=== PATIENT | female | born 1945 | race Caucasian/White ===

== ENCOUNTER 2018-11-25 13:02 | Inpatient (IN) ==
[2018-11-25] MEDS ORDERED: SODIUM BICARBONATE 8.4% IV PUSH ONE ×2 (13:09→14:13)
[2018-11-25] MEDS ORDERED: NS 500 ML IV ONE (13:13)
[2018-11-25] MEDS ORDERED: NS 1,000 ML IV ONE ×5 (13:13→20:14)
[2018-11-25] MEDS ORDERED: EPINEPHRINE SYRINGE IV ONE (13:14)
[2018-11-25] MEDS ORDERED: EPINEPHRINE 8 MG in D5W 250 ML IV SCH (13:15)
[2018-11-25 13:19] LABS: BLOOD TYPE ARTERIAL; SAMPLE BLOOD
[2018-11-25 13:20] LABS: BE -17.3 mmoll (-3.0-3.0); HCO3-(ACT) 11.5 mmoll (20.0-26.0); METHB 0.4 % (0.0-1.5); O2(CT) 13.6 mL/dL (15.0-23.0); O2HB 97.5 % (95.0-99.0); PCO2(98.6) 32 mmHg (35-45); PO2(98.6) 328 mmHg (60-100); SAO2 98.8 % (95.0-100.0); THB 9.3 g/dL (11.5-17.4)
[2018-11-25 13:34] LABS: pH(98.6) 7.13 (7.35-7.45)
[2018-11-25 13:35] LABS: ALLEN TEST YES; MODALITY AMBU BAG
--- NOTE | 2018-11-25 13:38 | EKG Report ---
Test Performed on : 11/25/2018 1:05:45 PM Test Reason : post arrest,seizure Blood Pressure : / mmHG Vent. Rate : 061 BPM Atrial Rate : 051 BPM P-R Int : 000 ms QRS Dur : 136 ms QT Int : 460 ms P-R-T Axes : 000 -50 044 degrees QTc Int : 463 ms Atrial fibrillation. with premature ventricular or aberrantly conducted complexes. Left axis deviation Nonspecific intraventricular block Inferior infarct , age undetermined Abnormal ECG When compared with ECG of 15-MAR-2012 10:03, Atrial fibrillation. has replaced Ectopic atrial rhythm. Questionable change in QRS duration Inferior infarct is now present Unconfirmed Result
[2018-11-25] MEDS ORDERED: VANCOMYCIN 1 GM/NS 1 GM/250 ML IVPB IV ONE (13:39)
[2018-11-25] MEDS ORDERED: ZOSYN 3.375 GM in NS 50 ML IV ONE (13:39)
--- NOTE | 2018-11-25 13:43 | Diag Imaging Result Doc PS360 ---
EXAM: CHEST-PORTABLE 11/25/2018 HISTORY: postarrest intubation TECHNIQUE: AP portable at 1323 COMMENT: There is an endotracheal tube with its tip at thoracic inlet. There are patchy ill-defined opacities bilaterally which may be indicative of pulmonary edema or pneumonia. This is worse than on 03/13/2012. IMPRESSION: Pulmonary edema versus pneumonia. Electronically signed by Javan Jackson 11/25/2018 1:41 PM
--- NOTE | 2018-11-25 13:49 | PROVIDER DOCUMENTATION ---
This chart was entered by Kady Mckeon Scribe, acting as scribe for Elio Russo MD. HPI-Cardiopulmonary Arrest - General Chief Complaint: Full Arrest Stated Complaint: FULL ARREST Time Seen by Provider: 11/25/18 13:09 Source: patient, family, EMS Unable to obtain history due to:: urgency Allergies/Adverse Reactions: Allergies Allergy/AdvReac Type Severity Reaction Status Date / Time No Known Allergies Allergy Unverified 11/25/18 13:32 Home Medications: Home Medication List Medication Instructions Recorded Confirmed Last Taken Type Aripiprazole [Abilify] 5 mg PO DAILY 03/13/12 11/25/18 10/16/13 07:00 History Gabapentin [Neurontin] 1,200 mg PO QAM 03/13/12 11/25/18 10/16/13 07:00 History Gabapentin [Neurontin] 600 mg PO QPM 03/13/12 11/25/18 10/16/13 20:00 History Metoprolol [Lopressor] 50 mg PO BID 03/13/12 11/25/18 10/16/13 07:00 History Topiramate 50 mg PO BID 03/13/12 11/25/18 10/16/13 07:00 History LISINOpril [Prinivil] 10 mg PO DAILY 10/16/13 11/25/18 10/16/13 07:00 History Metformin [Glucophage] 500 mg PO BID CC 10/16/13 11/25/18 10/16/13 07:00 History Levofloxacin 500 mg PO DAILY 11/25/18 11/25/18 Unknown History PRAVAstatin [Pravachol] 40 mg PO QHS 11/25/18 11/25/18 Unknown History - History of Present Illness-C/P Arrest Initial Comments: 73 yowf with history of seizure disorder and recent diarrheal illness who presents by ems after initial call was a seizure then into a full arrest. pt arrest was witnessed by daughter who started CPR. when fire/ems arrived on scene they intubated pt with a 7.5 and pt had ROSC. per ems pt was given 1mg epi x1 and a bag of fluid was given. pt is unresponsive when arrived in ed pre er BGL 262 and pt did have witnessed seizure by daughter prior arrest. per fire daughter was doing good compressions when they arrived on scene and took over life saving measures per ems when pt was loaded into the ambulance that is when ROSC happened and that was at 1253 Reason for Code Blue?: full arrest Witnessed arrest?: Yes (by daughter) Noted by:: family Bystander CPR?: Yes (daughter) CPR initiated before doctor arrival?: Yes Down-time before ACLS?: unknown Initial Findings: unresponsive, no respirations Treatment initiated prior to doctor arrival?: Initiated oxygen, Initiated intubated, Initiated CPR/thumper, Initiated IV fluids, Initiated epinephrine #mg (x1) Similar Symptoms Previously?: No Recently seen or treated by another doctor?: No - Pre-hospital Treatment EMS Initial Findings:: unresponsive, no respirations Pre-hospital Treatment: Initiated oxygen, Initiated intubated, Initiated CPR, Initiated IV fluids, Initiated epinephrine (x1) Review of Systems - Adult - REVIEW OF SYSTEMS - ADULT ROS:: per fire and ems Constitutional: reports: no symptoms reported Eyes: reports: no symptoms reported Ears, Nose, Mouth & Throat: reports: no symptoms reported Cardiovascular: denies: chest pain, palpitations Respiratory: reports: see HPI, shortness of breath. denies: cough Gastrointestinal: reports: see HPI, diarrhea (per family). denies: nausea, vomiting Genitourinary: reports: no symptoms reported Musculoskeletal: reports: no symptoms reported Integumentary: reports: no symptoms reported Neurological: reports: see HPI, seizure. denies: dizziness/vertigo Psychiatric: reports: no symptoms reported Endocrine: reports: no symptoms reported Hematologic/Lymphatic: reports: no symptoms reported Allergic/Immunologic: reports: no symptoms reported All Other Systems: Reviewed and Negative Past History - Adult - PAST MEDICAL HISTORY-ADULT Review of Records: reports: Old Records Reviewed, Nursing Assessment Review, Medications Reviewed, Social history reviewed & non-contributory. Major Childhood Illnesses: reports: denies history Cardiovascular: reports: HTN Respiratory: reports: denies history Gastrointestinal: reports: denies history Obstetrical/Gynecological: reports: denies history Genitourinary: reports: denies history Musculoskeletal: reports: denies history Neurological: reports: Seizures/Epilepsy Psychiatric: reports: denies history Endocrine/Immune: reports: Diabetes Diabetes Type: Type 2 Other Conditions: reports: other cancer (breast) - PRIOR SURGERIES/PROCEDURES Surgical/Procedure History: reports: cholecystectomy, BTL, breast - IMMUNIZATION STATUS Childhood Immunizations: See Nurse Assessment Flu Vaccine: See Nurse Assessment - FAMILY HISTORY Family History: reviewed, not pertinent - SOCIAL HISTORY Smoking: denies Substance Use: denies Living Situation: family Physical Exam-General - PHYSICAL EXAM-ADULT Initial Vital Signs Reviewed: Yes - CONSTITUTIONAL General Appearance: obese, other (unresponsive) - EYES Eyes: PERRL/EOMI (4mm but sluggish) - HEAD, EARS, NOSE, MOUTH & THROAT HENMT: moist mucous membranes, other (has vomit noted and suction as needed) - NECK Neck: normal inspection - RESPIRATORY Respiratory: respiratory distress, rales, other (intubated) - CARDIOVASCULAR Cardiovascular: normal peripheral pulses (64 BPM on exam), regular rate, rhythm - GASTROINTESTINAL (ABDOMEN) Abdominal Exam: distended - LYMPHATIC Lymphatic: no adenopathy - MUSCULOSKELETAL Extremity: pelvis stable, other (pt is unresponsive with no control of extremities) - SKIN Integumentary: warm/dry - PSYCHIATRIC Psych/Mental Status: other (unrespomnsive) Progress - PLAN OF CARE/RESULTS Progress/Plan/Lab Results: Orders Category Date Time Status Admit - [facility] Routine AdmDCTranf 11/25/18 15:18 Active Call Admitting on Arrival AT ADMISSION Care 11/25/18 15:22 Completed Cardiac Monitoring DIRECTED Care 11/25/18 13:26 Completed August Cath Insertion ORDERED Care 11/25/18 13:13 Completed Intake and Output-Strict ORDERED Care 11/25/18 13:13 Active Misc. NRSG Communication Order DIRECTED Care 11/25/18 14:11 Active Neurological Check Q1h Care 11/25/18 15:18 Hold Notify MD/PA/JOHANNA for exam NOW Care 11/25/18 13:13 Completed Repeat Vital Signs .Blood Pressure Care 11/25/18 13:13 Completed Repeat Vital Signs .Heart Rate Care 11/25/18 13:13 Completed Repeat Vital Signs .Oxygen Saturation Care 11/25/18 13:13 Active Repeat Vital Signs .Respiratory Rate Care 11/25/18 13:13 Active Repeat Vital Signs .Temp Care 11/25/18 13:13 Active Resuscitation Status Routine Care 11/25/18 15:18 Ordered Seizure Precautions ROUTINE Care 11/25/18 13:27 Active Vital Signs Order Q 4-HR ASSESS Care 11/25/18 15:18 Active NPO Diet 11/25/18 15:23 Active CHEST-PORTABLE [RAD] Stat Exams 11/25/18 13:09 Completed CHEST/ABD TUBE PLACEMENT [RAD] Stat Exams 11/25/18 14:54 Completed CHEST/ABD TUBE PLACEMENT [RAD] Stat Exams 11/25/18 17:[address] HEAD W/O CONTRAST [CT] Stat Exams 11/25/18 13:[address] THORAX/ABD/PELVIS W/O CON [CT] Stat Exams 11/25/18 13:49 Completed ABG [RESP] Routine Lab 11/25/18 13:04 Completed BLOOD CULTURE [BLDCUL] Stat Lab 11/25/18 14:50 Results CBC WITH ELECTRONIC DIFF [HEME] Stat Lab 11/25/18 13:17 Completed CK PROFILE [SP CHEM] Stat Lab 11/25/18 13:17 Completed CMP [COMPREHENSIVE METABOLIC PANEL] [CHEM] Stat Lab 11/25/18 13:17 Completed LACTATE, PLASMA [CHEM] Timed Lab 11/25/18 13:17 Completed MAGNESIUM [CHEM] Stat Lab 11/25/18 13:17 Completed TROPONIN T Stat Lab 11/25/18 13:17 Completed 0.9% Sodium Chloride Inj [Ns] 1,000 ml Med 11/25/18 13:41 Discontinued IV 999 mls/hr 0.9% Sodium Chloride Inj [Ns] 1,000 ml Med 11/25/18 15:59 Discontinued IV 999 mls/hr 0.9% Sodium Chloride Inj [Ns] 1,000 ml Med 11/25/18 16:19 Discontinued IV 999 mls/hr 0.9% Sodium Chloride Inj [Ns] 1,000 ml Med 11/25/18 13:13 Discontinued IV As Directed mls/hr 0.9% Sodium Chloride Inj [Ns] 500 ml Med 11/25/18 13:13 Discontinued IV 999 mls/hr 0.9% Sodium Chloride Inj [Ns] 80 ml Med 11/25/18 15:00 Discontinued Midazolam [Versed] 100 mg IV As Directed mls/hr Calcium Chloride Syringe Med 11/25/18 16:01 Discontinued 1 gm IV NOW ONE Dextrose 5%-Water Inj [D5w] 250 ml Med 11/25/18 13:15 Discontinued Epinephrine 8 mg IV As Directed mls/hr Dextrose 50% Syringe [D50w Syringe] Med 11/25/18 13:58 Discontinued 50 ml IV DIRECTED PRN PRN Epinephrine Syringe Med 11/25/18 13:14 Discontinued 1 mg IV NOW ONE Insulin Human Regular ([place] [Humulin R ([place])] Med 11/25/18 14:19 Discontinued 8 units .ROUTE .STK-MED ONE Insulin Human Regular [Humulin R] Med 11/25/18 13:59 Discontinued 8 unit IV NOW ONE Levetiracetam [Keppra] 1,000 mg Med 11/25/18 14:10 Discontinued 0.9% Sodium Chloride Inj [Ns] 100 ml IV NOW Lorazepam [Ativan] Med 11/25/18 14:10 Discontinued 2 mg IV NOW ONE Methylprednisolone Sod Succ [Solu-Medrol] Med 11/25/18 16:00 Discontinued 125 mg IV STAT ONE Ondansetron [Zofran] Med 11/25/18 14:11 Discontinued 4 mg IV NOW ONE Ondansetron [Zofran] Med 11/25/18 15:18 Discontinued 4 mg IV Q4H PRN PRN Piperacillin/Tazobactam [Zosyn] 3.375 gm Med 11/25/18 13:39 Discontinued 0.9% Sodium Chloride Inj [Ns] 50 ml IV NOW Sodium Bicarbonate 8.4% Med 11/25/18 13:09 Discontinued 50 meq IV PUSH NOW ONE Sodium Bicarbonate 8.4% Med 11/25/18 14:13 Discontinued 50 meq IV PUSH NOW ONE Vancomycin 1 gm/Ns Med 11/25/18 13:39 Discontinued 1 gm in 250 ml IV NOW O2 Per Protocol Routine Oth 11/25/18 13:05 Completed Telemetry [OM.EQ] Routine Oth 11/25/18 15:18 Active Ventilator Order Stat Oth 11/25/18 13:15 Active EKG [EKG] Stat Ther 11/25/18 13:10 Draft Transfer/Admit Order [TRANSFER] Routine Transfer 11/25/18 15:25 Completed pt arrived in ed at 1301 via first response intubated, unresponsive. pt has a pulse of 64 and BP 95/39. pt was given Bicarb @ 1307. pt does have vomit and is being suctioned as needed. pupils are sluggish reactive at 4mm. pt current BP 130/71 1325. kim is at the er and dr russo will speak with them shortly Result Diagrams: 11/26/18 14:59 11/26/18 14:59 - REASSESSMENT Reassessment #1 Time Reassessed: 13:40 (dr russo at bedside working with nurses and pt) Status: improving Reassessment Comment: bp improved after starting IV epi and IV fluid bolus Reassessment #2 Time Reassessed: 13:43 (dr russo is speaking with family at this time) Status: unchanged Reassessment #3 Time Reassessed: 14:14 (dr russo at [facility] ) Reassessment #4 Time Reassessed: 14:45 (dr russo with family at bedside) Status: unchanged Reassessment Comment: updated family of patients condition,plan to transfer to [facility] Reassessment #5 Time Reassessed: 15:04 (dr russo at bedside) Status: unchanged - EKG 1 Time of EKG reading by physician:: 13:05 EKG Read and Signed by:: Elio Russo EKG Interpretation (*Must complete 3 of following elements*): Abnormal Rate: 61 Rhythm: afib w/premyure ventricular or aberrantly conducted complexes [place]: left (deviation) QRS: other (nonspecific intraventricular block) ME Interval: normal ST Wave: normal Comments: inferior infarct, age undetermined - XRAY 1 XRAY Study: Chest Impression: See EMR Report (EXAM: CHEST-PORTABLE 11/25/2018 HISTORY: postarrest intubation TECHNIQUE: AP portable at 1323 COMMENT: There is an endotracheal tube with its tip at thoracic inlet. There are patchy ill-defined opacities bilaterally which may be indicative of pulmonary edema or pneumonia. This is worse than on 03/13/2012. IMPRESSION: Pulmonary edema versus pneumonia. Electronically signed by Javan Jackson 11/25/2018 1:41 PM 11/25/18 1341 Interpreting Physician: Javan Jackson MD Dictated Date/Time: 11/25/18 1341 cc: Elio Russo MD; Luis Abdul MD) 2 XRAY Study: other Impression: See EMR Report (EXAM: CHEST/ABD TUBE PLACEMENT - 11/25/2018 HISTORY: NG tube placement TECHNIQUE: Portable exam for nasogastric tube placement COMPARISON: None. FINDINGS: The tip of the nasogastric tube is at the expected location of the mid stomach. IMPRESSION: Nasogastric tube extending to mid stomach. Electronically signed by Endy Thakkar 11/25/2018 3:29 PM 11/25/18 1529 Interpreting Physician: Endy Thakkar MD Dictated Date/Time: 11/25/18 1528 cc: Elio Russo MD; Luis Abdul MD) - CT/MRI 1 CT Study: Head Impression: See EMR Report (EXAM: CT HEAD W/O CONTRAST - 11/25/2018 HISTORY: altered mentation, seizure TECHNIQUE: CT head without contrast COMPARISON: 06/03/2018 FINDINGS: There are mild artifacts from motion. There is an old lacunar infarct versus dilated perivascular space near the inferior basal ganglia on the right which is stable. There is an old tiny infarct at the right cerebellum which is stable. There is no indication of recent infarct, although acute infarcts may not be immediately visible. There are atherosclerotic calcifications noted at the base the brain. There is no evidence of intracranial hemorrhage, mass effect, midline shift, or hydrocephalus. There is no evidence of skull fracture. There is paranasal sinus disease noted which is most prominent on the right. The posterior nasal cavities are noted to be opacified. IMPRESSION: No visible acute intracranial abnormality. No hemorrh age or mass effect. There is paranasal sinus disease noted. The posterior nasal cavities are noted to be opacified. This exam was performed using automated exposure control, adjustment of mA or kV according to patient size, and/or use of iterative reconstruction technique. Electronically signed by Endy Thakkar 11/25/2018 2:12 PM 11/25/18 1412 Interpreting Physician: Endy Thakkar MD Dictated Date/Time: 11/25/18 1407 cc: Elio Russo MD; Luis Abdul MD) 2 CT Study: Abdomen, Pelvis, other Impression: See EMR Report (EXAM: CT THORAX/ABD/PELVIS W/O CON - 11/25/2018 HISTORY: cardiac arrest TECHNIQUE: CT thorax abdomen pelvis with intravenous contrast. No contrast administered per request the referring provider. COMPARISON: CT abdomen/pelvis with contrast of 03/13/2012 FINDINGS: CT thorax: There is an endotracheal tube with its tip slightly above the alvaro. There are fractures of the anterior lateral left second, third, fourth, and fifth ribs. There are fractures of the anterior right first lateral right second, third, fourth, fifth, and six ribs. There is cardiomegaly. There are relatively diffuse but somewhat patchy bilateral infiltrates. There is more dense consolidation at the superior right lower lobe. There is a small right pleural effusion. There is no pneumothorax identified. There is some infiltration at the superior mediastinum and supraclavicular region on the right. The possibility that this relates to hemorrhage cannot be excluded. Assessment for specific vascular in jury is difficult without intravenous contrast. CT abdomen/pelvis: There is some limitation of detail due to the lack of administered contrast. There are no substantial abnormalities of the liver, spleen, adrenal glands, or pancreas identified. The gallbladder surgically absent. There are no substantial abnormalities of the kidneys identified. There is no hydronephrosis. The stomach is distended with fluid and air. There is relatively diffuse distention of small bowel, primarily with fluid. This could relate to distal small bowel obstruction or possibly to ileus, although the colon is not substantially distended. There is a August catheter in the urinary bladder. There is apparent gas bubbles in the urinary bladder which presumably relates to the presence of August catheter. There is no discrete abscess identified. There is no free air identified. There is no substantial free fluid identified. There are old fracture deformities of posterior lower ribs on the right. There is an ununited fracture of the posterior right 11th rib of nonspecific age. IMPRESSION: CT thorax: Fractures of the anterior lateral left second through fifth ribs. Fracture of anterior lateral right first rib. Fractures of lateral right second through sixth ribs. Cardiomegaly. Fairly extensive ill-defined bilateral infiltrates. More dense consolidation at superior right lower lobe. Small right pleural effusion. No evidence of pneumothorax. Ill-defined infiltration or right supraclavicular region and right superior mediastinum. This may relate to hemorrhage. CT abdomen/pelvis: Distended stomach. Diffuse distention of small bowel. This may relate to distal small bowel obstruction or possibly to ileus. No discrete evidence of injury to the abdomen or pelvis. This report was discussed with Dr. Russo on 11/25/2018 at 2:39 PM and was readback. This exam was performed using automated exposure control, adjustment of mA or kV according to patient size, and/or use of iterative reconstruction technique. Electronically signed by Endy Thakkar 11/25/2018 2:40 PM 11/25/18 1440 Interpreting Physician: Endy Thakkar MD Dictated Date/Time: 11/25/18 1420 cc: Elio Russo MD; Luis Abdul MD) - CONSULTS/PCP/HOSPITALIST Notification #1 *Consult/PCP/Hospitalist*: hospitalist dr smart Time Discussed: 14:33 (pt will be tranfered to [facility]) Consult Disposition: Admit #2 Consult: dr abdul Time Discussed: 15:14 Reason/Comments: phone consult,request admit to [facility] ICU to his service Consult Disposition: Admit Procedures - GASTRIC LAVAGE Nasogastric Lavage: Particulate Matter Procedure Comment: stable Departure - Departure Date of Disposition Decision: 11/25/18 Time of Disposition Decision: 17:55 DIAGNOSIS: RAE (acute kidney injury), Hyperkalemia, Elevated troponin, Seizure disorder, Bilateral pulmonary infiltrates on chest x-ray, Multiple fractures of ribs, bilateral, initial encounter for closed fracture Disposition: ADMITTED INPATIENT 09 Certified Medical Emergency: Emergent Condition: Critical - Critical Care Note This patient required my direct & personal management of CC.: Yes Total Time (mins): 38 Critical Care Statement: This patient required my direct personal management to treat or rule out processes, the absence of which, could potentiallly result in sudden, clinically significant life or limb threatening deterioration. Attestation - Physician/ SABINA Attestation Patient care was provided by Advanced Practice Provider:: No The physician spent face to face time with patient:: Yes Advanced Practice Provider documentation review:: Supervising physician onsite and consulted in the evaluation and care of this patient. The physician did have a face to face encounter with the patient. This chart was documented by the indicated scribe, (Kady Mckeon Scribe) and accurately reflects the services I performed and decisions made by me, Elio Russo MD, as attested by the provider's signature.
[2018-11-25 13:52] LABS: MAGNESIUM 2.1 mg/dL (1.5-2.7)
[2018-11-25 13:55] LABS: BASO# 0.01 X1000 (0.0-0.2); BASO% 0.1 % (0.0-0.8); EOS# 0.03 X1000 (0.0-0.7); EOS% 0.4 % (0.0-10.0); HEMATOCRIT 27.4 % (37.0-47.0); HEMOGLOBIN 9.2 g/dL (12.0-16.0); IMM GRAN# 0.04 X1000 (0.0-0.04); IMM GRAN% 0.5 % (0.0-0.5); LYMPH# 4.68 X1000 (1.2-3.4); LYMPH% 61.3 % (20.5-51.1); MCH 31.2 PG (27-31); MCHC 33.6 g/dL (33-37); MCV 92.9 FL (81-99); MONO# 0.31 X1000 (0.11-0.59); MONO% 4.1 % (1.7-9.3); MPV 10.8 FL (7.4-10.4); NEUT# 2.57 X1000 (1.4-6.5); NEUT% 33.6 % (42.2-75.2); PLT 231 X1000 (130-400); RBC 2.95 XMIL (4.2-5.4); RDW 12.4 % (11.5-14.5); WBC 7.64 X1000 (4.8-10.8)
[2018-11-25 13:57] LABS: ALBUMIN 3.3 g/dL (3.5-5.0); CALCIUM 7.1 mg/dL (8.8-10.2); CREATININE 3.9 mg/dL (0.5-0.9); TOTAL BILIRUBIN 0.6 mg/dL (0.20-1.00); TOTAL PROTEIN 5.8 g/dL (6.3-8.3)
[2018-11-25] MEDS ORDERED: D50W SYRINGE IV PRN (13:58)
[2018-11-25] MEDS ORDERED: HUMULIN R IV ONE (13:59)
[2018-11-25 14:00] LABS: POTASSIUM 5.9 mmol/L (3.5-5.1)
[2018-11-25] MEDS ORDERED: KEPPRA 1,000 MG in NS 100 ML IV ONE (14:10)
[2018-11-25] MEDS ORDERED: ATIVAN IV ONE (14:10)
[2018-11-25] MEDS ORDERED: ZOFRAN IV ONE (14:11)
--- NOTE | 2018-11-25 14:14 | Diag Imaging Result Doc PS360 ---
EXAM: CT HEAD W/O CONTRAST - 11/25/2018 HISTORY: altered mentation, seizure TECHNIQUE: CT head without contrast COMPARISON: 06/03/2018 FINDINGS: There are mild artifacts from motion. There is an old lacunar infarct versus dilated perivascular space near the inferior basal ganglia on the right which is stable. There is an old tiny infarct at the right cerebellum which is stable. There is no indication of recent infarct, although acute infarcts may not be immediately visible. There are atherosclerotic calcifications noted at the base the brain. There is no evidence of intracranial hemorrhage, mass effect, midline shift, or hydrocephalus. There is no evidence of skull fracture. There is paranasal sinus disease noted which is most prominent on the right. The posterior nasal cavities are noted to be opacified. IMPRESSION: No visible acute intracranial abnormality. No hemorrhage or mass effect. There is paranasal sinus disease noted. The posterior nasal cavities are noted to be opacified. This exam was performed using automated exposure control, adjustment of mA or kV according to patient size, and/or use of iterative reconstruction technique. Electronically signed by Endy Thakkar 11/25/2018 2:12 PM
[2018-11-25 14:15] LABS: CK INDEX 2.6 (0.0-2.5); CK-MB 6.49 ng/mL (0.0-5.0)
[2018-11-25] MEDS ORDERED: HUMULIN R (PARKWAY) ONE (14:19)
--- NOTE | 2018-11-25 14:43 | Diag Imaging Result Doc PS360 ---
EXAM: CT THORAX/ABD/PELVIS W/O CON - 11/25/2018 HISTORY: cardiac arrest TECHNIQUE: CT thorax abdomen pelvis with intravenous contrast. No contrast administered per request the referring provider. COMPARISON: CT abdomen/pelvis with contrast of 03/13/2012 FINDINGS: CT thorax: There is an endotracheal tube with its tip slightly above the alvaro. There are fractures of the anterior lateral left second, third, fourth, and fifth ribs. There are fractures of the anterior right first lateral right second, third, fourth, fifth, and six ribs. There is cardiomegaly. There are relatively diffuse but somewhat patchy bilateral infiltrates. There is more dense consolidation at the superior right lower lobe. There is a small right pleural effusion. There is no pneumothorax identified. There is some infiltration at the superior mediastinum and supraclavicular region on the right. The possibility that this relates to hemorrhage cannot be excluded. Assessment for specific vascular injury is difficult without intravenous contrast. CT abdomen/pelvis: There is some limitation of detail due to the lack of administered contrast. There are no substantial abnormalities of the liver, spleen, adrenal glands, or pancreas identified. The gallbladder surgically absent. There are no substantial abnormalities of the kidneys identified. There is no hydronephrosis. The stomach is distended with fluid and air. There is relatively diffuse distention of small bowel, primarily with fluid. This could relate to distal small bowel obstruction or possibly to ileus, although the colon is not substantially distended. There is a August catheter in the urinary bladder. There is apparent gas bubbles in the urinary bladder which presumably relates to the presence of August catheter. There is no discrete abscess identified. There is no free air identified. There is no substantial free fluid identified. There are old fracture deformities of posterior lower ribs on the right. There is an ununited fracture of the posterior right 11th rib of nonspecific age. IMPRESSION: CT thorax: Fractures of the anterior lateral left second through fifth ribs. Fracture of anterior lateral right first rib. Fractures of lateral right second through sixth ribs. Cardiomegaly. Fairly extensive ill-defined bilateral infiltrates. More dense consolidation at superior right lower lobe. Small right pleural effusion. No evidence of pneumothorax. Ill-defined infiltration or right supraclavicular region and right superior mediastinum. This may relate to hemorrhage. CT abdomen/pelvis: Distended stomach. Diffuse distention of small bowel. This may relate to distal small bowel obstruction or possibly to ileus. No discrete evidence of injury to the abdomen or pelvis. This report was discussed with Dr. Russo on 11/25/2018 at 2:39 PM and was readback. This exam was performed using automated exposure control, adjustment of mA or kV according to patient size, and/or use of iterative reconstruction technique. Electronically signed by Endy Thakkar 11/25/2018 2:40 PM
[2018-11-25] MEDS ORDERED: VERSED 100 MG in NS 80 ML IV SCH (15:00)
[2018-11-25] MEDS ORDERED: ZOFRAN IV PRN (15:18)
--- NOTE | 2018-11-25 15:31 | Diag Imaging Result Doc PS360 ---
EXAM: CHEST/ABD TUBE PLACEMENT - 11/25/2018 HISTORY: NG tube placement TECHNIQUE: Portable exam for nasogastric tube placement COMPARISON: None. FINDINGS: The tip of the nasogastric tube is at the expected location of the mid stomach. IMPRESSION: Nasogastric tube extending to mid stomach. Electronically signed by Endy Thakkar 11/25/2018 3:29 PM
[2018-11-25] MEDS ORDERED: SOLU-MEDROL IV ONE (16:00)
[2018-11-25] MEDS ORDERED: CALCIUM CHLORIDE SYRINGE IV ONE (16:01)
--- NOTE | 2018-11-25 17:44 | Diag Imaging Result Doc PS360 ---
EXAM: CHEST/ABD TUBE PLACEMENT - 11/25/2018 HISTORY: NG tube re-insertion TECHNIQUE: Portable exam for nasogastric tube placement COMPARISON: Prior exam 11/25/2018 FINDINGS: The tip of the nasogastric tube now projects at the expected location of the proximal stomach near the gastroesophageal junction. The distal side-port tube is at the expected location of the distal esophagus. IMPRESSION: Tip of nasogastric tube at proximal stomach near gastroesophageal junction. Electronically signed by Endy Thakkar 11/25/2018 5:42 PM
[2018-11-25] MEDS ORDERED: TYLENOL PR PRN (18:25)
[2018-11-25] MEDS ORDERED: NS 500 ML IV PRN (18:25)
[2018-11-25] MEDS ORDERED: MAGNESIUM SULFATE 2 GM in STERILE WATER INJ. 50 ML IV PRN (18:30)
[2018-11-25] MEDS ORDERED: POTASSIUM CHLORIDE 40 MEQ in NS 250 ML IV PRN (18:30)
[2018-11-25] MEDS ORDERED: SODIUM PHOSPHATE 20 MMOL in NS 250 ML IV PRN (18:30)
[2018-11-25] MEDS ORDERED: POTASSIUM CHLORIDE 60 MEQ in NS 500 ML IV PRN (18:30)
[2018-11-25] MEDS ORDERED: SODIUM PHOSPHATE 10 MMOL in NS 250 ML IV PRN (18:30)
[2018-11-25] MEDS ORDERED: FENTANYL IV ONE (18:30)
[2018-11-25 18:46] LABS: ALLEN TEST NO; BE -24.6 mmoll (-3.0-3.0); BLOOD TYPE ARTERIAL; HCO3-(ACT) 5.7 mmoll (20.0-26.0); METHB 0.2 % (0.0-1.5); O2(CT) 13.4 mL/dL (15.0-23.0); O2HB 95.2 % (95.0-99.0); PCO2(98.6) 45 mmHg (35-45); PO2(98.6) 90 mmHg (60-100); SAMPLE BLOOD; SRATE 20 BPM; THB 9.9 g/dL (11.5-17.4); TVOL 450 mL
[2018-11-25 18:49] LABS: MODALITY VENTILATOR
[2018-11-25] MEDS ORDERED: NITROGLYCERIN 50 MG/D5W 50 MG/250 ML IV.SOLN IV SCH (19:00)
[2018-11-25] MEDS ORDERED: NORCURON IV ONE (19:00)
[2018-11-25 19:05] LABS: pH(98.6) 6.86 (7.35-7.45)
[2018-11-25] MEDS ORDERED: NS 2,000 ML ONE (19:06)
--- NOTE | 2018-11-25 19:13 | Diag Imaging Result Doc PS360 ---
EXAM: CHEST/ABD TUBE PLACEMENT - 11/25/2018 HISTORY: NGT placement/ therapeutic hypothermia TECHNIQUE: Portable exam for nasogastric tube placement COMPARISON: Most recent exam of 11/25/2018 FINDINGS: The tip of nasogastric tube remains at the expected location of the proximal stomach near the gastroesophageal junction. IMPRESSION: Tip of nasogastric tube in proximal stomach near gastroesophageal junction. Electronically signed by Endy Thakkar 11/25/2018 7:11 PM
[2018-11-25] MEDS ORDERED: EPINEPHRINE SYRINGE ONE (19:15)
[2018-11-25] MEDS ORDERED: SODIUM BICARBONATE 8.4% ONE (19:15)
[2018-11-25] MEDS ORDERED: NORCURON ONE (19:19)
[2018-11-25] MEDS ORDERED: STERILE WATER INJ. ONE (19:20)
[2018-11-25] MEDS ORDERED: VANCOMYCIN IV PER PHARMACY MISC SCH (19:45)
--- NOTE | 2018-11-25 20:06 | HISTORY AND PHYSICAL ---
HISTORY OF PRESENT ILLNESS: Ms. Rainey is a 73-year-old white female. She came to [facility] after she had 1 seizure episode. After the first episode, she became awake and alert, and she was getting oriented but then she had another seizure episode, and after that she had a cardiac arrest. After the cardiac arrest, we tried to resuscitate her with CPR. She had several ribs fractures at that time, and they tried to intubate her and put her on a ventilator. After that, during the procedure, she continued to have some partial seizures. She has a known case of seizure disorder and has been on gabapentin. Other details are not available, as the family is not here yet. She is a patient of Dr. Abdul, who initially saw her at [facility]. The patient was given IV fentanyl once as well as Keppra, and she was given Nimbex 80 mg IV as well as lorazepam IV at [facility], [place]. Other details of personal, past, and family history are not available at present. According to her physician, for about 7 days she had some GI side disorder with abdominal distention and possible small bowel ileus, and she went into some acute renal failure, as her creatinine went up to 3. The patient then was transferred after she was stabilized. She was transferred to [facility] in the ICU, and she is to be placed on a hypothermia protocol. REVIEW OF SYSTEMS: Not available. PHYSICAL EXAMINATION: GENERAL: The patient is stuporous, having some partial seizures affecting the face and having some twitches of the lower extremity. VITAL SIGNS: She is on a hypothermia blanket at present. Her temperature was down to 92.3. Pulse rate 66 per minute, respiratory rate 31, blood pressure down to 134/88. HEENT: Head normocephalic. Pupils are dilated but slightly reactive. NECK: Supple. She is intubated. CHEST/LUNGS: Reveal bilateral basal congestion. PMI in the normal position. CARDIOVASCULAR: Heart sounds normal. She has bilateral rales. ABDOMEN: Somewhat distended. She has an NG tube placed, and the tip of the tube is in the stomach as per the x-ray. No guarding, rigidity, free fluid, masses, or organomegaly. Bowel sounds not audible at the present time. EXTREMITIES: There is minimal leg edema. NEUROLOGICAL: The patient is stuporous. Detailed neurological examination cannot be done at this time. The patient is on a vent. MEDICATIONS: She had a central line put in, and we will continue the IV antibiotics, namely Zosyn and vancomycin. IMPRESSION: Seizure disorder and post-seizure cardiac arrest. The patient is on the ventilator now and probably had aspiration pneumonia, and now is to be placed on a hypothermia protocol. We have consulted Dr. Spence as well as the ladies' hat trimmer. cc: MD Luis Barrios MD
--- NOTE | 2018-11-25 20:11 | Diag Imaging Result Doc PS360 ---
EXAM: CHEST-PORTABLE - 11/25/2018 HISTORY: CVL placement TECHNIQUE: Portable chest COMPARISON: Prior exam of 11/25/2018 FINDINGS: There is been interval insertion of a left subclavian central venous catheter. The tip of the catheter is at the expected location of the junction of the left innominate vein and superior vena cava. There is no evidence of pneumothorax. There is an endotracheal tube is tip approximately 4.5 cm above the alvaro. There is a nasogastric tube is tip at the proximal stomach. There are bilateral perihilar infiltrates which appear to have increased. There is a small right pleural effusion. There is no pneumothorax identified. Heart size appears within normal limits. IMPRESSION: Tip of central venous catheter at junction of left innominate vein and superior vena cava. No evidence of pneumothorax. Some increase in perihilar infiltrates. Electronically signed by Endy Thakkar 11/25/2018 8:09 PM
[2018-11-25] MEDS ORDERED: NS 1,000 ML ONE (20:14)
[2018-11-25] MEDS: NS 500 ML IV SCH (20:18)
[2018-11-25 20:20] LABS: ALLEN TEST YES; BE -22.9 mmoll (-3.0-3.0); BLOOD TYPE ARTERIAL; METHB 0.6 % (0.0-1.5); O2(CT) 12.8 mL/dL (15.0-23.0); PCO2(98.6) 28 mmHg (35-45); PO2(98.6) 76 mmHg (60-100); SAMPLE BLOOD; SAO2 94.9 % (95.0-100.0); SRATE 25 BPM; THB 9.6 g/dL (11.5-17.4); TVOL 600 mL
[2018-11-25 20:21] LABS: MODALITY VENTILATOR
--- NOTE | 2018-11-25 20:22 | OPERATIVE NOTE ---
PROCEDURE DATE: 11/25/2018 PROCEDURE PERFORMED: Left subclavian central line placement. CLINICAL INDICATIONS: A 73-year-old, status post cardiopulmonary arrest, in need of central venous access. PROCEDURE: When I came into the ICU, Dr. Gee was at the bedside attempting a left subclavian line placement. Initial attempts had been unsuccessful with the line going cephalad. Dr. Gee had a patient in the operating room which needed his attention. He exited the sterile site and allowed me to perform the procedure. I scrubbed and gowned in the usual fashion and came to the bedside to assist in placement. The patient received a dose of paralytic. When the paralytic was active and the patient had relaxed, the left subclavian vein was entered on the second pass of the introducer needle. Wire was advanced through the needle without difficulty. Site was dilated with the plastic dilator. Triple lumen catheter was advanced over the wire and sutured into position. There was good blood return from all ports. A surgical dressing was placed by this practitioner. Postprocedure chest x-ray revealed no evidence of pneumothorax and the line was in good position. cc: MD Luis Tucker MD
[2018-11-25] MEDS: LACRI-LUBE OPH OINT BOTH EYES SCH (20:26)
[2018-11-25] MEDS: FENTANYL 1,000 MICROGM in NS 80 ML IV SCH (20:28)
[2018-11-25] MEDS: NIMBEX 80 MG in NS 160 ML IV SCH (20:34)
[2018-11-25 20:40] LABS: INR 1.53; PROTIME 19.6 Seconds (11.0-16.0)
[2018-11-25] MEDS: ATIVAN IV SCH ×2 (20:43→22:36)
[2018-11-25] MEDS: PEPCID IV SCH (20:43)
[2018-11-25] MEDS: SODIUM BICARBONATE 8.4% IV PUSH SCH ×2 (20:44→22:37)
[2018-11-25] MEDS: SODIUM CHLORIDE 0.9% INJ SCH (20:53)
[2018-11-25 20:57] LABS: AMYLASE 47 U/L (20-200); LIPASE 56 U/L (13-60)
[2018-11-25 21:00] LABS: ALB/GLOB RATIO 1.6; ALBUMIN 3.5 g/dL (3.5-5.0); CREATININE 3.8 mg/dL (0.5-0.9); POTASSIUM 5.8 mmol/L (3.5-5.1); TOTAL BILIRUBIN 0.96 mg/dL (0.20-1.00); TOTAL PROTEIN 5.7 g/dL (6.3-8.3)
[2018-11-25] MEDS: KEPPRA 750 MG in NS 100 ML IV SCH (21:07)
[2018-11-25] MEDS: SOLU-CORTEF IV SCH (21:08)
--- NOTE | 2018-11-25 21:15 | PULMONOLOGY CONSULTATION ---
DATE: 11/25/2018 REQUESTING PHYSICIAN: Luis Abdul MD. REASON FOR CONSULTATION: Respiratory failure, status post cardiopulmonary arrest. HISTORY OF PRESENT ILLNESS: Ms. Rainey is a 73-year-old white female with history of seizure disorder, who recently had a diarrheal illness. The patient had a seizure with return of mentation, followed by a 2nd seizure, and went into a cardiac arrest. The patient's daughter performed bystander CPR. EMS arrived, and the patient regained spontaneous circulation. She was unresponsive upon arrival to the emergency room. Initial arterial blood gas revealed significant acidosis with a lactate of 8.1. She has received volume resuscitation. She continues to be hypotensive. A central line was being placed by Dr. Gee upon my arrival and was completed by this practitioner (see separate dictation). PAST MEDICAL HISTORY/PROBLEM LIST: 1. Seizure disorder. 2. Recent diarrheal illness as per above. 3. Remote history of breast cancer without known recurrence. 4. Status post cholecystectomy. 5. Diabetes mellitus. 6. Hypertension. SOCIAL HISTORY: No tobacco or alcohol use listed. FAMILY HISTORY: Noncontributory. REVIEW OF SYSTEMS: Cannot be obtained. PHYSICAL EXAMINATION: General: A well-nourished white female who is unresponsive and on mechanical ventilation. She is currently on an epinephrine drip. Vital signs: Blood pressure 103/62, heart rate 73, respiratory rate 25, oxygen saturation 97%. HEENT: Pupils are midpoint and nonreactive. Oropharynx is dry. Neck: Supple. Chest: Some crepitus noted with auscultation although no subcutaneous air identified. Cardiac: Increased rate. Regular rhythm. Abdomen: Soft, with mild increased tympany. Extremities: Cool to the touch. LABORATORY DATA AND IMAGING STUDIES: Chest x-ray reveals bilateral pulmonary infiltrates. White blood count 7.6, hemoglobin 9.2, platelet count 231,000. Most recent arterial blood gas reveals a pH of 6.86, pCO2 of 45, pO2 of 90, lactate 8.3. Chemistry: Sodium 121, potassium 5.9, chloride 87, bicarbonate 13, BUN 42, creatinine 3.9, AST 1888, ALT 2743, alkaline phosphatase 261. CT scan of the chest, abdomen, and pelvis is reviewed. Chest exam reveals fractures of the left 2nd, 3rd, 4th, and 5th ribs and the right 2nd, 3rd, 4th, 5th, and 6th ribs. There are diffuse bilateral infiltrates with small right-sided effusion, possible hemorrhage at the right supraclavicular region. The abdomen reveals diffuse distention of the stomach and small bowel, possibly related to obstruction or ileus. IMPRESSION: A 73-year-old with seizure disorder, status post cardiopulmonary arrest. She has regained return of spontaneous circulation but had an episode of emesis and now has acute hypoxemic respiratory failure, acute hypercapnic respiratory failure, septic shock, aspiration pneumonia, seizure disorder with seizures, acute renal failure, acute liver injury, mediastinal injury, possible bowel ileus or obstruction, with ongoing severe metabolic acidosis. The exact time between cardiac arrest and return of spontaneous circulation is unknown. RECOMMENDATIONS: 1. Continue hypothermia protocol. 2. Central line placement (see separate report). 3. CVP monitoring. 4. Glucose control. 5. Continue broad-spectrum antibiotics. 6. Vasopressors as needed for hypotension. 7. Fluid management per CVP readings. 8. Anticipate poor prognosis given her age, diabetes mellitus, and severe multiorgan dysfunction this evening. cc: MD Luis Tucker MD
--- NOTE | 2018-11-25 21:18 | PROGRESS NOTE ---
DATE: 11/25/2018 SUBJECTIVE: Ms. Rainey is a 73-year-old white female who had a couple of syncopal episodes at home today. One was stiffening of her body, followed by arousal and attempt to take some fluids. She apparently had some vomiting and aspirated. She had another episode that sounds like a cardiac arrest, and ambulance was called. She was brought to [facility]. CPR was done and heart rate responded. She was placed on a ventilator and was noted to have some seizure activity. There is history of seizures, and her initial episodes sounded like a seizure. Through the process, it was unknown what amount of time she may have been hypoxic. DIAGNOSTIC DATA: Initial CT scan of her head was normal. CT of her abdomen and chest revealed bilateral lung infiltrates and ileus. She also was noted to have acute renal failure with elevated BUN and creatinine 42 and 3.9 respectively. Potassium was elevated at 5.9. She was given insulin and glucose. AST was elevated at 1888, and ALT was 2743. Alkaline phosphatase was 261. CPK was 251, and CK index was 2.6. MB was 6.5. Troponin T was 0.22. Plasma lactate was 7.2. White blood count was 7600 and hematocrit 27.4. PLAN: Supportive care and consultation with Dr. Spence, Pulmonology; Cardiology, Dr. Barrios; and Neurology, Dr. Ruiz. Discussion was made with family regarding her guarded prognosis. Supportive care will be done at this time, and lab rechecked tomorrow morning. cc: Luis Abdul MD
[2018-11-25 21:20] LABS: PHOSPHORUS 7.9 mg/dL (2.7-4.5)
[2018-11-25 21:30] LABS: BASO# 0.01 X1000 (0.0-0.2); BASO% 0.1 % (0.0-0.8); EOS# 0.07 X1000 (0.0-0.7); EOS% 0.7 % (0.0-10.0); HEMATOCRIT 31.6 % (37.0-47.0); HEMOGLOBIN 10.3 g/dL (12.0-16.0); IMM GRAN# 0.03 X1000 (0.0-0.04); IMM GRAN% 0.3 % (0.0-0.5); LYMPH% 18.1 % (20.5-51.1); MCH 32.1 PG (27-31); MCHC 32.6 g/dL (33-37); MCV 98.4 FL (81-99); MONO# 0.42 X1000 (0.11-0.59); MPV 11.5 FL (7.4-10.4); NEUT# 8.05 X1000 (1.4-6.5); NEUT% 76.8 % (42.2-75.2); PLT 307 X1000 (130-400); RBC 3.21 XMIL (4.2-5.4); RDW 12.9 % (11.5-14.5); WBC 10.48 X1000 (4.8-10.8)
[2018-11-25 21:31] LABS: CK INDEX 2.1 (0.0-2.5); CK-MB 18.08 ng/mL (0.0-5.0)
[2018-11-25] MEDS: NS 1,000 ML IV SCH (21:33)
[2018-11-25] MEDS ORDERED: VANCOMYCIN 1,450 MG in NS 250 ML IV ONE (22:00)
[2018-11-25] MEDS: HUMULIN R 100 UNIT in NS 100 ML IV SCH (22:43)
[2018-11-25] MEDS ORDERED: ATROPINE SYRINGE IV ONE (22:47)
[2018-11-26] MEDS: ZOSYN 3.375 GM in NS 50 ML IV SCH ×5 (00:19→23:55)
[2018-11-26] MEDS: SODIUM BICARBONATE 8.4% IV PUSH SCH ×6 (00:31→21:36)
[2018-11-26] MEDS: LACRI-LUBE OPH OINT BOTH EYES SCH ×4 (00:32→17:44)
[2018-11-26 01:11] LABS: BASO# 0.01 X1000 (0.0-0.2); BASO% 0.1 % (0.0-0.8); EOS# 0.04 X1000 (0.0-0.7); EOS% 0.5 % (0.0-10.0); HEMATOCRIT 29.9 % (37.0-47.0); HEMOGLOBIN 9.8 g/dL (12.0-16.0); IMM GRAN# 0.04 X1000 (0.0-0.04); IMM GRAN% 0.5 % (0.0-0.5); LYMPH# 1.22 X1000 (1.2-3.4); LYMPH% 15.6 % (20.5-51.1); MCHC 32.8 g/dL (33-37); MCV 94.6 FL (81-99); MONO# 0.45 X1000 (0.11-0.59); MONO% 5.7 % (1.7-9.3); MPV 11.1 FL (7.4-10.4); NEUT# 6.07 X1000 (1.4-6.5); NEUT% 77.6 % (42.2-75.2); PLT 211 X1000 (130-400); RBC 3.16 XMIL (4.2-5.4); RDW 12.5 % (11.5-14.5); WBC 7.83 X1000 (4.8-10.8)
[2018-11-26 02:18] LABS: ALLEN TEST YES; BE -20.8 mmoll (-3.0-3.0); BLOOD TYPE ARTERIAL; HCO3-(ACT) 8.6 mmoll (20.0-26.0); O2(CT) 16.3 mL/dL (15.0-23.0); O2HB 93.3 % (95.0-99.0); PCO2(98.6) 22 mmHg (35-45); PO2(98.6) 66 mmHg (60-100); SAMPLE BLOOD; SAO2 94.6 % (95.0-100.0); SRATE 25 BPM; THB 12.4 g/dL (11.5-17.4); TVOL 600 mL
[2018-11-26 02:19] LABS: MODALITY VENTILATOR; pH(98.6) 7.11 (7.35-7.45)
[2018-11-26 02:41] LABS: ALB/GLOB RATIO 1.2; ALBUMIN 2.6 g/dL (3.5-5.0); CREATININE 3.3 mg/dL (0.5-0.9); POTASSIUM 4.2 mmol/L (3.5-5.1); TOTAL BILIRUBIN 1.2 mg/dL (0.20-1.00); TOTAL PROTEIN 4.7 g/dL (6.3-8.3)
[2018-11-26 02:42] LABS: CALCIUM 6.5 mg/dL (8.8-10.2)
[2018-11-26] MEDS ORDERED: CALCIUM GLUCONATE 1 GM in NS 50 ML IV ONE ×3 (02:46→08:39)
[2018-11-26] MEDS: ATIVAN IV SCH ×6 (02:53→21:49)
[2018-11-26] MEDS: NS 1,000 ML IV SCH ×3 (03:09→17:31)
[2018-11-26] MEDS: EPINEPHRINE 8 MG in D5W 250 ML IV SCH ×2 (03:52→21:26)
[2018-11-26 04:30] LABS: CK INDEX 2.5 (0.0-2.5); CK-MB 15.49 ng/mL (0.0-5.0)
[2018-11-26] MEDS: SOLU-CORTEF IV SCH ×3 (04:41→20:38)
[2018-11-26] MEDS: SODIUM CHLORIDE 0.9% INJ SCH ×2 (05:45→17:51)
[2018-11-26] MEDS: PEPCID IV SCH ×2 (05:45→17:44)
[2018-11-26 06:20] LABS: ALLEN TEST YES; BE -19.4 mmoll (-3.0-3.0); BLOOD TYPE ARTERIAL; HCO3-(ACT) 9.7 mmoll (20.0-26.0); O2(CT) 11.4 mL/dL (15.0-23.0); O2HB 92.5 % (95.0-99.0); PCO2(98.6) 21 mmHg (35-45); PO2(98.6) 64 mmHg (60-100); SAMPLE BLOOD; SAO2 93.9 % (95.0-100.0); SRATE 25 BPM; THB 8.7 g/dL (11.5-17.4); TVOL 600 mL
[2018-11-26 06:22] LABS: MODALITY VENTILATOR; pH(98.6) 7.16 (7.35-7.45)
[2018-11-26] MEDS: DOPAMINE 800 MG/D5W 800 MG/500 ML IV.SOLN IV SCH (06:32)
--- NOTE | 2018-11-26 07:30 | EKG Report ---
Test Performed on : 11/26/2018 06:48:59 AM Test Reason : syncope Blood Pressure : / mmHG Vent. Rate : 082 BPM Atrial Rate : 082 BPM P-R Int : 186 ms QRS Dur : 086 ms QT Int : 366 ms P-R-T Axes : 073 006 -62 degrees QTc Int : 427 ms Sinus rhythm. with premature atrial complexes. with aberrant conduction. Low voltage QRS Septal infarct (cited on or before 25-NOV-2018) Abnormal ECG When compared with ECG of 25-NOV-2018 21:13, (Unconfirmed) aberrant conduction. is now present NV interval has decreased Vent. rate has increased BY 29 BPM Non-specific change in ST segment in Inferior leads Nonspecific T wave abnormality now evident in Anterolateral leads Confirmed by Liam CLANCY, Nicanor Quintana ([id number]) on 11/27/2018 10:53:35 AM
--- NOTE | 2018-11-26 07:32 | EKG Report ---
Test Performed on : 11/25/2018 5:41:11 PM Test Reason : therapeutic hypotermia Blood Pressure : / mmHG Vent. Rate : 073 BPM Atrial Rate : 073 BPM P-R Int : 246 ms QRS Dur : 104 ms QT Int : 412 ms P-R-T Axes : 038 -37 059 degrees QTc Int : 453 ms Sinus rhythm. with 1st degree AV block. with fusion complexes Left axis deviation Septal infarct , age undetermined Abnormal ECG When compared with ECG of 25-NOV-2018 13:05, (Unconfirmed) Sinus rhythm. has replaced Atrial fibrillation. Questionable change in QRS duration Septal infarct is now present Criteria for Inferior infarct are no longer present Confirmed by Liam CLANCY, Nicanor Quintana ([id number]) on 11/27/2018 10:53:13 AM
--- NOTE | 2018-11-26 07:46 | Diag Imaging Result Doc PS360 ---
EXAM: CHEST-PORTABLE INDICATION: intubated TECHNIQUE: One view COMPARISON: 11/25/2018 FINDINGS: Support tubes and lines are in stable positions. Bilateral dense perihilar infiltrates are approximately stable. No new consolidation is appreciated. Cardiac silhouette is stable. IMPRESSION: Stable chest. Electronically signed by Dez Cantu 11/26/2018 7:44 AM
[2018-11-26 07:49] LABS: PHOSPHORUS 4.2 mg/dL (2.7-4.5)
[2018-11-26 07:53] LABS: ALBUMIN 2.2 g/dL (3.5-5.0); CREATININE 3.4 mg/dL (0.5-0.9); MAGNESIUM 1.4 mg/dL (1.5-2.7); POTASSIUM 3.5 mmol/L (3.5-5.1); TOTAL BILIRUBIN 0.9 mg/dL (0.20-1.00); TOTAL PROTEIN 4.5 g/dL (6.3-8.3)
[2018-11-26] MEDS ORDERED: MAGNESIUM SULFATE 2 GM/S.W.I. 2 GM/50 ML IVPB IV ONE (08:01)
[2018-11-26] MEDS ORDERED: ALBUMIN 25% IV ONE (08:02)
[2018-11-26 08:03] LABS: INR 1.51; PROTIME 19.4 Seconds (11.0-16.0)
[2018-11-26 08:12] LABS: CALCIUM 6.7 mg/dL (8.8-10.2)
[2018-11-26 08:17] LABS: HEMATOCRIT 25.4 % (37.0-47.0); HEMOGLOBIN 8.6 g/dL (12.0-16.0); IMM GRAN# 0.05 X1000 (0.0-0.04); IMM GRAN% 0.6 % (0.0-0.5); LYMPH# 1.07 X1000 (1.2-3.4); LYMPH% 12.2 % (20.5-51.1); MCH 30.6 PG (27-31); MCHC 33.9 g/dL (33-37); MCV 90.4 FL (81-99); MONO# 0.31 X1000 (0.11-0.59); MONO% 3.5 % (1.7-9.3); MPV 11.1 FL (7.4-10.4); NEUT# 7.33 X1000 (1.4-6.5); NEUT% 83.7 % (42.2-75.2); PLT 222 X1000 (130-400); RBC 2.81 XMIL (4.2-5.4); WBC 8.76 X1000 (4.8-10.8)
[2018-11-26] MEDS: LOVENOX SUBQ SCH (08:55)
[2018-11-26] MEDS: KEPPRA 750 MG in NS 100 ML IV SCH ×2 (08:55→20:39)
--- NOTE | 2018-11-26 09:09 | CARDIOLOGY CONSULTATION ---
DATE: 11/26/2018 CHIEF COMPLAINT: Respiratory/cardiac arrest. HISTORY OF PRESENT ILLNESS: Ms. Rainey is a 73-year-old white female, who is currently on hypothermia protocol, sedated and paralyzed, unable to provide any history. All history is obtained from the chart. Apparently EMS was contacted with the onset of seizure activity at home. Patient apparently had a cardiac arrest around that time as well. CPR was started by family. Subsequently, the patient was intubated in the field and brought into the ER. Subsequently, she was transferred over to [facility]. I do not have any documentation from EMS or in the ER note regarding the patient's initial rhythm. The initial EKG that I have appears to show a rate of 61 beats per minute. No clear atrial activity is identified. This may represent a junctional escape versus possible atrial fibrillation. No clear distinct fibrillatory waves are identified. Subsequently, patient has returned into a sinus rhythm since then. PAST MEDICAL HISTORY: 1. Seizure disorder. 2. History of breast cancer, seemingly followed by Dr. Hamilton per review of the last previous encounters at the hospital. 3. Diabetes. 4. Hypertension. 5. Hyperlipidemia. SOCIAL HISTORY, FAMILY HISTORY, REVIEW OF SYSTEMS: All unable to be obtained secondary to the patient's intubated, paralyzed status. PHYSICAL EXAMINATION: Vital Signs: Most recently her temperature was 91.6 degrees, but she is on hypothermia protocol. On presentation, she was not febrile. Heart rate is 84. Blood pressure 105/58. General: She is sedated, paralyzed on the ventilator. HEENT: Oropharynx is moist. Poor dentition. Eye examination is pink conjunctivae, white sclerae. Neck: Examination shows no obvious thyromegaly or thyroid tenderness. Cardiovascular: She sounds to be in a regular rate and rhythm. Telemetry currently shows sinus. She has no lower extremity edema. She has mildly cool extremities consistent with hypothermia protocol. Chest: Exam sounds relatively clear. She has mechanical breath sounds heard throughout all lung de. Abdomen: Soft, nontender. No obvious guarding. Skin: Exam cool. No obvious rashes throughout. Neurologic/Psychiatric: Exam compromised by the patient's intubated, paralyzed, sedated status. PERTINENT DATA: CT scan of the head shows no visible acute intracranial abnormalities, hemorrhage or mass effect. A chest, abdomen and pelvis CT demonstrates rib fractures. Some cardiomegaly. Fairly extensive ill-defined bilateral infiltrates with dense consolidation in the superior right lower lobe. Small right pleural effusion. Diffuse distention of small bowel, possible obstruction versus ileus. Original EKG at 1305 hours yesterday is as per HPI above that was interpreted by me. Subsequent EKG at 2113 hours yesterday shows sinus rhythm, what appears to be a narrow complex. No acute ischemic changes. Low voltage. Prior EKG at 1741 hours yesterday shows a sinus mechanism, rate of 73 beats per minute. First-degree AV block. No acute ischemic changes identified. EKG this morning at 0648 hours: Sinus rhythm, occasional PVCs, no acute ischemic changes, low voltage. LABORATORY DATA: Her white count is 8.7, hematocrit 25, platelet count 222. ABG shows a pH of 7.1, pCO2 of 21 and a PO2 of 64. Her lactate is 11.1. Her sodium is 131, potassium 4.2, BUN 43, creatinine is 3.3. Her presenting creatinine was 3.9 in 2013. Her last creatinine was 1.1. T bilirubin is 1.2, AST 831, ALT 1880. Her peak ALT was 2772. Cardiac enzymes have been positive with initial troponin of 0.218 subsequent. Most recent is 0.409. ASSESSMENT: Ms. Rainey is a 73-year-old female, who presented with cardiopulmonary arrest. PLAN: I am unclear of the initial rhythm that the patient had. There is no rhythm data provided. That being said, everything we have on our file here today shows that she has had adequate rate. There has been no significant maria luisa arrhythmias or tachy arrhythmias identified. She continues to have issues with perfusion being markedly acidotic. She is in acute renal failure, evidence of shock liver as well, and her troponin elevations are likely secondary to supply-demand mismatch evidenced by poor perfusion that she appears to be experiencing diffusely. We will ensure that she has an echocardiogram ordered, otherwise I do not have any acute cardiovascular recommendations from our standpoint. We will continue to follow. cc: MD Luis Reyes MD
--- NOTE | 2018-11-26 09:34 | PROGRESS NOTE ---
DATE: 11/26/2018 VITAL SIGNS: Temperature 96 degrees, heart rate 84, respirations 25 on ventilator, blood pressure 105/58, and O2 saturation 95% on 65% FiO2. OBJECTIVE: The patient is unresponsive. Pupils were dilated and fixed. Lungs reveal some scattered rhonchi. Abdomen is soft. There is no ankle edema. DIAGNOSTIC: Chest x-ray reveals no new consolidation, and persistent dense perihilar infiltrates. EKG shows Q in V1 and V2 suggestive of septal infarct, but there was no ST-T elevation. LABORATORY: Hemoglobin 9.8, hematocrit 29.9, and white blood count 7800. Sodium 134, potassium 3.5, BUN 44, creatinine 3.4, glucose 256, magnesium 1.4, AST 591, alkaline phosphatase 153, total bilirubin 0.9, total protein 4.5, albumin 2.2. Amylase is 27 and lipase 33. IMPRESSION: Poor prognosis due to impaired neurologic status with probable hypoxic brain injury. She is currently on an epinephrine drip to maintain blood pressure. PLAN: Continue supportive care. We will give albumin and magnesium. cc: Luis Abdul MD
[2018-11-26] MEDS: NIMBEX 80 MG in NS 160 ML IV SCH (12:40)
[2018-11-26] MEDS: FENTANYL 1,000 MICROGM in NS 80 ML IV SCH ×2 (12:42→15:53)
[2018-11-26] MEDS: HUMULIN R 100 UNIT in NS 100 ML IV SCH ×2 (12:43→20:54)
--- NOTE | 2018-11-26 13:10 | CONSULTATION ---
DATE OF CONSULTATION: 11/26/2018 HISTORY: Ms. Rainey is 73 years old, and she is undergoing hypothermia protocol following cardiopulmonary arrest. History from attentive family and from review of the available hospital record is that she had some seizures and then collapsed and was unresponsive with no pulse. She was not breathing. Resuscitation was begun by family. She presented to the emergency room. She has been cooled for approximately 12 hours. She is heavily sedated now. Family reports she has had seizures since raveler. Sister reports this was due to "blood clot on her brain" around age 6. She has taken seizure medicines for all of her life. Family believes she has not had any seizure medication change in several years. With the current regimen: Felbamate 1200 mg b.i.d., gabapentin 600 mg morning/1200 mg in the evening, topiramate 50 mg b.i.d., family reports she had not had a seizure in at least a year until a few weeks ago when she had a briefnseizure typical of her prior partial seizures. The partial seizures are usually sudden sense of unease which is hard for her to describe. She will usually call to her and report symptoms, usually describing that as "I am having a seizure" or "I am about to have a seizure." will usually sit beside her and comfort her, and she usually recovers without losing consciousness and without altered awareness. These episodes are not associated with limb rigidity or jerking, incontinence, change in breathing or cyanosis. She usually is recovered in several minutes, but sometimes does not feel well for an hour. In the past, she has had generalized seizures. These would sometimes begin with her reporting she was about to have a seizure. would often notice apnea, lips turning blue, followed by generalized rigidity and jerking for a few minutes, and then somnolence for an hour or so and then gradual recovery. has not witnessed generalized seizure in more than a year. She had been sick with apparent GI viral syndrome, which several other family members had experienced. She had poor appetite, poor p.o. intake, diarrhea and stomach cramps. I do not think fever was documented. She has felt bad for several days with that illness. Yesterday, she called to her to report she was about to have a seizure. He sat with her and comforted her, and soon she was awake and alert. She rested for about an hour and then he helped her up to the bathroom. He left her on the toilet, and after taking just several steps away, he turned and saw that she had apparently lost consciousness and fallen from the toilet. She appeared not to be breathing according to . She started breathing spontaneously. She was helped to a sitting position. She seemed recovered, alert and talking. About an hour later, she had the sudden onset of rigidity with vigorous limb jerking and typical seizure features. At that point, family noted she was not breathing and could not detect pulse. There is no history of definite serious recent head injury, but she did fall 6 months ago and had a knot on her head. She has been falling more frequently in recent years. There is history of head injury with possible brief loss of consciousness 7 or 8 years ago. She has never had diagnosis of stroke. She does not use illicit drugs or ethanol. Workup here includes noncontrast CT showing old changes, but nothing acute and no bleeding. Lab shows anemia, sodium 127, BUN 45, glucose mid 200s. Phosphorus was elevated at 7.9. Magnesium was 2.0 and calcium 8.0. Liver enzymes are significantly elevated. Family reports no history of liver disease. Initial systolic blood pressures were 90s to 100s. There was one systolic blood pressure recorded at 72 several hours after admission. She was afebrile on presentation. She has been cooled per hypothermia protocol and heavily sedated. PHYSICAL EXAMINATION: On exam, Ms. Rainey is supine and completely unresponsive. Pupils are large, about 6 mm, and I did not see definite reaction to bright light. There is no corneal reflex bilaterally. I did not see definite lateral eye movement with passive head turning. Head is unremarkable. Neck is supple. Limb tone is symmetric. Plantar response is silent bilaterally. She did not withdraw the limbs from moderate noxious stimulation. IMPRESSION: 1. Coma. She is heavily sedated, and I do not think we can say too much from clinical standpoint right now. 2. 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 Time will tell. We need to continue support and follow her clinically after sedatives are reduced. I think that will be tomorrow morning. I discussed with the family very frankly my concern for significant irreversible brain injury. We might need to consider EEG later to make sure she is not having subclinical seizures, and we will need to consider repeat imaging when practical. I discussed with family the likelihood that initial CT would be negative even if there was devastating brain injury. 3. Chronic seizure disorder. Seizure control had been good until current illness. The family is certain that she continued taking her seizure medicines as prescribed, and did not miss doses even though her p.o. intake was poor. 4. Family reports forgetfulness, gradually more prominent over the last year or so. If she has a baseline cognitive impairment syndrome, that would predispose her to a more dense and more protracted encephalopathy with any problem. I do not have any urgent suggestion right now. Thanks for asking Neurology to see Ms. Rainey. cc: MD Luis Amador III, MD MTDD
[2018-11-26 13:17] LABS: ALLEN TEST YES; BE -17.4 mmoll (-3.0-3.0); BLOOD TYPE ARTERIAL; HCO3-(ACT) 11.3 mmoll (20.0-26.0); METHB 0.6 % (0.0-1.5); O2(CT) 10.3 mL/dL (15.0-23.0); O2HB 94.5 % (95.0-99.0); PCO2(98.6) 22 mmHg (35-45); PO2(98.6) 65 mmHg (60-100); SAMPLE BLOOD; SAO2 95.6 % (95.0-100.0); SRATE 25 BPM; THB 7.7 g/dL (11.5-17.4); TVOL 600 mL; pH(98.6) 7.21 (7.35-7.45)
[2018-11-26 13:20] LABS: MODALITY VENTILATOR
--- NOTE | 2018-11-26 13:56 | EKG Report ---
Test Performed on : 11/25/2018 9:13:24 PM Test Reason : ICU. No order in [place] Blood Pressure : / mmHG Vent. Rate : 053 BPM Atrial Rate : 053 BPM P-R Int : 224 ms QRS Dur : 090 ms QT Int : 488 ms P-R-T Axes : 054 005 -05 degrees QTc Int : 457 ms Sinus bradycardia. with 1st degree AV block. Low voltage QRS Septal infarct (cited on or before 25-NOV-2018) Abnormal ECG When compared with ECG of 25-NOV-2018 17:41, (Unconfirmed) fusion complexes are no longer present Questionable change in initial forces of Septal leads Nonspecific T wave abnormality now evident in Inferior leads Confirmed by Liam CLANCY, Nicanor Quintana ([id number]) on 11/27/2018 10:53:23 AM
--- NOTE | 2018-11-26 14:26 | ECHO REPORT ---
ORDER DATE: 11/25/2018 INDICATION: Cardiac arrest. FINDINGS: 1. The right atrium is normal in size at 3.7 cm. 2. Moderate to severe tricuspid regurgitation with an RV systolic pressure of 87, suggesting pulmonary hypertension. 3. Normal RV size and systolic function. 4. Mild pulmonic insufficiency. 5. Moderate left atrial enlargement with a volume index of 35. 6. No mitral valve prolapse. No significant mitral regurgitation is identified on this study. No mitral stenosis. 7. Left ventricle was normal in size with an end-diastolic dimension of 4.1 cm. Mild left ventricular hypertrophy with a posterior and interventricular septal wall thickness of 0.8 and 1.3 cm respectively. Hyperdynamic LV systolic function with an estimated EF greater than 70%. 8. Aortic valve opens well. There does not appear to be any clear degree of stenosis or insufficiency on this study. 9. Aorta appears normal on visualized segments. 10. No pericardial effusion identified. There is suggestion of pleural effusion. cc: MD Luis Reyes MD
[2018-11-26] MEDS ORDERED: NS 500 ML IV SCH (14:45)
[2018-11-26] MEDS ORDERED: NS 500 ML IV ONE (14:45)
[2018-11-26 15:18] LABS: HEMATOCRIT 26.1 % (37.0-47.0); HEMOGLOBIN 8.8 g/dL (12.0-16.0); IMM GRAN# 0.02 X1000 (0.0-0.04); IMM GRAN% 0.4 % (0.0-0.5); LYMPH# 0.83 X1000 (1.2-3.4); LYMPH% 17.3 % (20.5-51.1); MCH 30.2 PG (27-31); MCHC 33.7 g/dL (33-37); MCV 89.7 FL (81-99); MONO# 0.18 X1000 (0.11-0.59); MONO% 3.8 % (1.7-9.3); MPV 11.6 FL (7.4-10.4); NEUT# 3.77 X1000 (1.4-6.5); NEUT% 78.5 % (42.2-75.2); PLT 170 X1000 (130-400); RBC 2.91 XMIL (4.2-5.4); RDW 12.1 % (11.5-14.5)
[2018-11-26 15:50] LABS: ALB/GLOB RATIO 1.2; ALBUMIN 2.6 g/dL (3.5-5.0); CALCIUM 7.2 mg/dL (8.8-10.2); CREATININE 3.7 mg/dL (0.5-0.9); POTASSIUM 3.9 mmol/L (3.5-5.1); TOTAL PROTEIN 4.8 g/dL (6.3-8.3)
[2018-11-26 16:27] LABS: PHOSPHORUS 3.4 mg/dL (2.7-4.5)
[2018-11-26 18:38] LABS: ALLEN TEST YES; BLOOD TYPE ARTERIAL; HCO3-(ACT) 14.8 mmoll (20.0-26.0); METHB 0.7 % (0.0-1.5); O2HB 94.4 % (95.0-99.0); PCO2(98.6) 22 mmHg (35-45); PO2(98.6) 63 mmHg (60-100); SAMPLE BLOOD; SAO2 95.1 % (95.0-100.0); SRATE 25 BPM; THB 7.5 g/dL (11.5-17.4); TVOL 600 mL; pH(98.6) 7.33 (7.35-7.45)
[2018-11-26 18:40] LABS: MODALITY VENTILATOR
[2018-11-26] MEDS ORDERED: ATIVAN IV ONE (19:09)
[2018-11-26] MEDS ORDERED: ATIVAN IV PRN (19:10)
[2018-11-26 19:14] LABS: BASO# 0.01 X1000 (0.0-0.2); BASO% 0.2 % (0.0-0.8); EOS# 0.01 X1000 (0.0-0.7); EOS% 0.2 % (0.0-10.0); HEMATOCRIT 25.1 % (37.0-47.0); HEMOGLOBIN 8.5 g/dL (12.0-16.0); IMM GRAN# 0.02 X1000 (0.0-0.04); IMM GRAN% 0.3 % (0.0-0.5); LYMPH# 0.97 X1000 (1.2-3.4); LYMPH% 16.7 % (20.5-51.1); MCH 31.1 PG (27-31); MCHC 33.9 g/dL (33-37); MCV 91.9 FL (81-99); MONO# 0.22 X1000 (0.11-0.59); MONO% 3.8 % (1.7-9.3); MPV 11.3 FL (7.4-10.4); NEUT# 4.59 X1000 (1.4-6.5); NEUT% 78.8 % (42.2-75.2); PLT 140 X1000 (130-400); RBC 2.73 XMIL (4.2-5.4); RDW 12.1 % (11.5-14.5); WBC 5.82 X1000 (4.8-10.8)
[2018-11-26 19:41] LABS: ALBUMIN 2.2 g/dL (3.5-5.0); CREATININE 3.8 mg/dL (0.5-0.9); MAGNESIUM 1.9 mg/dL (1.5-2.7); POTASSIUM 3.6 mmol/L (3.5-5.1); TOTAL BILIRUBIN 0.94 mg/dL (0.20-1.00); TOTAL PROTEIN 4.3 g/dL (6.3-8.3)
[2018-11-26 19:48] LABS: CALCIUM 6.9 mg/dL (8.8-10.2)
[2018-11-26] MEDS ORDERED: FENTANYL 1,000 MICROGM in NS 80 ML IV SCH (19:57)
[2018-11-26] MEDS: NS 500 ML IV SCH (20:39)
[2018-11-26] MEDS ORDERED: D50W SYRINGE IV ONE ×2 (21:13→23:07)
[2018-11-26] MEDS ORDERED: DIPRIVAN 1% 1,000 MG/100 ML BOTTLE IV SCH (21:45)
[2018-11-26 21:48] LABS: INR 1.41; PROTIME 18.3 Seconds (11.0-16.0)
--- NOTE | 2018-11-26 23:48 | PULMONOLOGY PROGRESS NOTE ---
DATE: 11/26/2018 SUBJECTIVE: The patient remains sedated and paralyzed on the hypothermia protocol. She is currently 33 degrees C and having some mild bradycardia, and we will increase her core temperature closer to the 35 degrees C. She continues to require epinephrine drip. OBJECTIVE: Vital Signs: BP 110/61, heart rate 79, respiratory rate 25, oxygen saturation 99%. HEENT: Pupils are equal but not reactive. Oropharynx appears dry. Neck: Supple. Chest: Reveals coarse crackles bilaterally. Cardiac: Regular rate. Normal S1, normal S2. Abdomen: Soft. Extremities: Cool to the touch. LABORATORIES: Chest x-ray reveals central line and endotracheal tube to be in good position. Dense bilateral infiltrates are present. White blood count 5.8, hemoglobin 8.5, platelet count 140,000. Arterial blood gas pH 7.16, pCO2 is 21, PO2 is 64, with a lactate of 11.1. Sodium 136, potassium 3.6, chloride 102, bicarbonate 10, anion gap 24, BUN 46, creatinine 3.8. AST 308, ALT 1107. IMPRESSION: A 73-year-old with 1. Cardiopulmonary arrest. 2. Seizure disorder. 3. Acute hypoxemic respiratory failure. 4. Septic/cardiogenic shock. 5. Acute liver injury. 6. Acute renal failure. 7. Acute hypoxemic respiratory failure. 8. Bilateral pneumonia. RECOMMENDATIONS: 1. Complete hypothermia protocol today. 2. Continue glucose control for diabetes. 3. Continue broad-spectrum antibiotics. 4. Wean vasopressors as tolerated. 5. Follow up management per Neurology. The patient will need a followup CT scan and may need a follow-up EEG. 6. Overall prognosis is guarded to poor given her ongoing lactic acidosis, age, and diabetes mellitus. Family was at bedside and all questions were answered. cc: MD Luis Tucker MD
[2018-11-27] MEDS: LACRI-LUBE OPH OINT BOTH EYES SCH ×2 (00:52→05:42)
[2018-11-27 01:20] LABS: ALLEN TEST YES; BE -11.2 mmoll (-3.0-3.0); BLOOD TYPE ARTERIAL; HCO3-(ACT) 16.2 mmoll (20.0-26.0); METHB 0.5 % (0.0-1.5); O2(CT) 10.4 mL/dL (15.0-23.0); O2HB 97.5 % (95.0-99.0); PCO2(98.6) 24 mmHg (35-45); PO2(98.6) 116 mmHg (60-100); SAMPLE BLOOD; SAO2 98.1 % (95.0-100.0); SRATE 25 BPM; THB 7.4 g/dL (11.5-17.4); TVOL 600 mL; pH(98.6) 7.35 (7.35-7.45)
[2018-11-27 01:21] LABS: MODALITY VENTILATOR
[2018-11-27 01:27] LABS: BASO# 0.01 X1000 (0.0-0.2); BASO% 0.2 % (0.0-0.8); HEMATOCRIT 19.9 % (37.0-47.0); IMM GRAN# 0.06 X1000 (0.0-0.04); LYMPH# 0.73 X1000 (1.2-3.4); LYMPH% 12.4 % (20.5-51.1); MCH 30.4 PG (27-31); MCHC 35.2 g/dL (33-37); MCV 86.5 FL (81-99); MONO% 6.8 % (1.7-9.3); NEUT# 4.68 X1000 (1.4-6.5); NEUT% 79.6 % (42.2-75.2); PLT 145 X1000 (130-400); RDW 11.7 % (11.5-14.5); WBC 5.88 X1000 (4.8-10.8)
[2018-11-27 01:53] LABS: ALB/GLOB RATIO 1.1; CALCIUM 6.4 mg/dL (8.8-10.2); CREATININE 3.8 mg/dL (0.5-0.9); POTASSIUM 4.2 mmol/L (3.5-5.1); TOTAL BILIRUBIN 0.82 mg/dL (0.20-1.00); TOTAL PROTEIN 3.8 g/dL (6.3-8.3)
[2018-11-27] MEDS: NS 1,000 ML IV SCH (01:59)
[2018-11-27] MEDS ORDERED: NS 1,000 ML IV ONE (02:02)
[2018-11-27] MEDS: ATIVAN IV SCH ×2 (02:29→05:42)
[2018-11-27] MEDS: D50W SYRINGE IV PRN ×5 (02:33→23:18)
[2018-11-27] MEDS: ZOSYN 3.375 GM in NS 50 ML IV SCH ×2 (04:32→11:17)
[2018-11-27] MEDS: SOLU-CORTEF IV SCH ×3 (04:33→21:55)
[2018-11-27] MEDS: DOPAMINE 800 MG/D5W 800 MG/500 ML IV.SOLN IV SCH (04:50)
[2018-11-27 04:51] LABS: ALLEN TEST YES; BE -15.4 mmoll (-3.0-3.0); BLOOD TYPE ARTERIAL; HCO3-(ACT) 12.8 mmoll (20.0-26.0); METHB 0.9 % (0.0-1.5); O2HB 92.8 % (95.0-99.0); PCO2(98.6) 38 mmHg (35-45); PO2(98.6) 75 mmHg (60-100); SAMPLE BLOOD; SAO2 93.9 % (95.0-100.0); SRATE 25 BPM; THB 16.1 g/dL (11.5-17.4); TVOL 600 mL
[2018-11-27 04:53] LABS: MODALITY VENTILATOR; pH(98.6) 7.14 (7.35-7.45)
[2018-11-27 05:01] LABS: CREATININE 3.8 mg/dL (0.5-0.9); POTASSIUM 4.1 mmol/L (3.5-5.1)
[2018-11-27 05:02] LABS: CALCIUM 6.6 mg/dL (8.8-10.2)
[2018-11-27] MEDS ORDERED: SODIUM BICARBONATE 8.4% IV PUSH ONE ×2 (05:40)
[2018-11-27] MEDS: PEPCID IV SCH ×2 (06:14→18:16)
[2018-11-27] MEDS: SODIUM CHLORIDE 0.9% INJ SCH ×2 (06:37→18:17)
--- NOTE | 2018-11-27 07:25 | Diag Imaging Result Doc PS360 ---
EXAM: CHEST-PORTABLE INDICATION: intubated TECHNIQUE: One view COMPARISON: 11/26/2018 FINDINGS: Support tubes and lines are in stable positions. Dense perihilar infiltrate seen previously have worsened and there are now infiltrates throughout both lungs sparing only the left lung apex. No other new consolidation is identified. Cardiac silhouette is stable. IMPRESSION: Interval worsening as described. Electronically signed by Dez Cantu 11/27/2018 7:22 AM
[2018-11-27] MEDS ORDERED: CALCIUM GLUCONATE 4.65 MEQ in NS 50 ML IV ONE (07:34)
[2018-11-27] MEDS: LOVENOX SUBQ SCH (07:59)
[2018-11-27] MEDS: LASIX IV SCH ×3 (08:00→18:17)
[2018-11-27] MEDS: KEPPRA 750 MG in NS 100 ML IV SCH (08:00)
[2018-11-27 08:53] LABS: BASO# 0.01 X1000 (0.0-0.2); BASO% 0.1 % (0.0-0.8); HEMATOCRIT 26.7 % (37.0-47.0); HEMOGLOBIN 9.3 g/dL (12.0-16.0); IMM GRAN# 0.04 X1000 (0.0-0.04); IMM GRAN% 0.6 % (0.0-0.5); LYMPH# 0.62 X1000 (1.2-3.4); LYMPH% 8.7 % (20.5-51.1); MCHC 34.8 g/dL (33-37); MCV 86.1 FL (81-99); MONO# 0.49 X1000 (0.11-0.59); MONO% 6.8 % (1.7-9.3); MPV 11.6 FL (7.4-10.4); NEUT% 83.8 % (42.2-75.2); PLT 151 X1000 (130-400); RDW 12.5 % (11.5-14.5); WBC 7.16 X1000 (4.8-10.8)
[2018-11-27 09:48] LABS: INR 1.43; PROTIME 18.5 Seconds (11.0-16.0)
[2018-11-27 09:53] LABS: AMYLASE 74 U/L (20-200); LIPASE 53 U/L (13-60)
--- NOTE | 2018-11-27 10:04 | PROGRESS NOTE ---
DATE: 11/27/2018 VITAL SIGNS: Temperature 94.6 degrees, heart rate 129, respirations 28, blood pressure 104/83, O2 saturation on ventilator 98%. SUBJECTIVE: The patient began having seizure activity after fentanyl and propofol were discontinued. She is currently on epinephrine to maintain blood pressure. Pupils are mid range and unreactive. There has been no movement of arms or legs. Dr. Ruiz has ordered a CT scan of her head. Keppra has been increased in attempt to control her seizures. She has been given Lasix to mobilize fluid. Urine output is minimal at 15 mL over the last shift. LABORATORY DATA: At 1:13 this morning, hemoglobin was 7.0 and hematocrit 19.9 with white blood count 5800. One unit was ordered by Dr. Goodrich to be transfused. BUN is 49 and creatinine 3.8. Calcium was 6.6. Potassium was normal at 4.1 and sodium 138. Glucose was 82. She was given 1 amp of calcium gluconate. Echocardiogram has apparently been done, but not reported. PLAN: Transfuse a second unit, increase Keppra, hopefully get CT and echocardiogram report back today. EEG will be done if there is no improvement by this afternoon. cc: Luis Abdul MD
--- NOTE | 2018-11-27 10:17 | PROGRESS NOTE ---
DATE: 11/27/2018 SUBJECTIVE: Ms. Rainey completed hypothermia protocol and has been warmed. Sedatives are not on board now. She has had some twitching and jerking movement mostly in the head, neck, and shoulders. She has not become responsive. She had a short trial with propofol, but became hypotensive. Levetiracetam dose is 750 mg q.12 hours. OBJECTIVE: On exam, there is no definite eye movement with passive head turning. Pupils are about 5 mm and I did not see definite reaction to bright light. She had some jerking movement involving the face, neck and shoulders. This was not typical clonic activity. In between these repetitive jerking movements, she seems flaccid throughout. Plantar response is silent bilaterally. I did not elicit limb withdrawal with noxious stimulation. Neck is supple without meningismus. IMPRESSION: Very worrisome clinical picture for significant ischemic/anoxic brain injury. Would continue lorazepam p.r.n. to try to control jerking movement. I will increase the levetiracetam dose to 1000 mg q.8 hours, but anticipate holding that dose soon due to poor renal function. We might consider EEG later. First, we will see if we can get repeat noncontrast CT of the head to look for evidence of diffuse ischemic injury and edema which would help with prognosis and management decisions. I discussed again very frankly with family concern for irreversible injury and the possibility that she will not recover. Thanks for asking Neurology to see Ms. Rainey. cc: MD Luis Amador III, MD MTDD
[2018-11-27] MEDS: NS 500 ML IV SCH ×2 (10:20→19:05)
[2018-11-27 10:39] LABS: ALBUMIN 2.3 g/dL (3.5-5.0); CREATININE 3.9 mg/dL (0.5-0.9); MAGNESIUM 1.9 mg/dL (1.5-2.7); PHOSPHORUS 4.5 mg/dL (2.7-4.5); POTASSIUM 4.9 mmol/L (3.5-5.1); TOTAL BILIRUBIN 0.93 mg/dL (0.20-1.00); TOTAL PROTEIN 4.5 g/dL (6.3-8.3)
[2018-11-27 10:40] LABS: CALCIUM 6.9 mg/dL (8.8-10.2)
[2018-11-27] MEDS: HUMULIN R SUBQ SCH ×3 (11:09→21:56)
[2018-11-27] MEDS: ATIVAN IV PRN ×2 (11:17→16:20)
[2018-11-27] MEDS ORDERED: KEPPRA 1,000 MG in NS 100 ML IV SCH ×2 (12:00→16:00)
[2018-11-27] MEDS: EPINEPHRINE 8 MG in D5W 250 ML IV SCH (12:38)
[2018-11-27] MEDS ORDERED: LOPRESSOR IV PRN (12:57)
[2018-11-27 13:45] LABS: BLOOD TYPE ARTERIAL; SAMPLE BLOOD
[2018-11-27 13:46] LABS: PCO2(98.6) 23 mmHg (35-45); pH(98.6) 7.32 (7.35-7.45)
[2018-11-27 13:47] LABS: THB 6.1 g/dL (11.5-17.4)
[2018-11-27 13:48] LABS: ALLEN TEST YES; MODALITY VENTILATOR; SRATE 25 BPM; TVOL 600 mL
[2018-11-27 13:51] LABS: PO2(98.6) 48 mmHg (60-100)
[2018-11-27 13:52] LABS: BASO# 0.01 X1000 (0.0-0.2); BASO% 0.1 % (0.0-0.8); EOS# 0.05 X1000 (0.0-0.7); EOS% 0.7 % (0.0-10.0); HEMATOCRIT 28.1 % (37.0-47.0); IMM GRAN# 0.09 X1000 (0.0-0.04); IMM GRAN% 1.2 % (0.0-0.5); LYMPH# 0.73 X1000 (1.2-3.4); LYMPH% 9.7 % (20.5-51.1); MCHC 35.6 g/dL (33-37); MCV 84.4 FL (81-99); MONO# 0.57 X1000 (0.11-0.59); MONO% 7.6 % (1.7-9.3); MPV 11.9 FL (7.4-10.4); NEUT# 6.07 X1000 (1.4-6.5); NEUT% 80.7 % (42.2-75.2); PLT 152 X1000 (130-400); RBC 3.33 XMIL (4.2-5.4); RDW 12.8 % (11.5-14.5); WBC 7.52 X1000 (4.8-10.8)
[2018-11-27 14:04] LABS: BANDS 4 % (0-1); EOS 1 % (1-10); LYMPHS 12 % (21-51); MONO 9 % (1-9); SEGS 69 % (42-75)
[2018-11-27 14:05] LABS: POIKILOCYTOSIS OCCASIONAL
[2018-11-27 14:34] LABS: ALB/GLOB RATIO 1.4; ALBUMIN 2.4 g/dL (3.5-5.0); POTASSIUM 5.3 mmol/L (3.5-5.1); TOTAL BILIRUBIN 0.97 mg/dL (0.20-1.00); TOTAL PROTEIN 4.1 g/dL (6.3-8.3)
[2018-11-27 14:35] LABS: CALCIUM 6.6 mg/dL (8.8-10.2)
[2018-11-27] MEDS: LEVOPHED 8 MG in D5 1/2 NS 250 ML IV SCH ×2 (14:53→21:08)
--- NOTE | 2018-11-27 15:52 | Diag Imaging Result Doc PS360 ---
EXAM: CT HEAD W/O CONTRAST HISTORY: compare with initial scan TECHNIQUE: CT head without contrast COMPARISON: 11/25/2018 FINDINGS: No parenchymal hemorrhage. No epidural or subdural hematoma. No subarachnoid hemorrhage. There is atrophy with at least mild chronic microvascular ischemic changes. Old right cerebellar lacunar infarct. No mass identified on this noncontrasted exam. No hydrocephalus. There is opacification of the right maxillary sinus and near complete opacification of the right sphenoid sinus. Over 50% opacification of the ethmoid and left sphenoid sinuses. Small air-fluid level in the left maxillary sinus. There is also fluid in the mastoid sinuses. IMPRESSION: 1.No hemorrhage 2.Atrophy with chronic ischemic changes 3.Extensive sinusitis which has worsened since the prior exam This exam was performed using automated exposure control, adjustment of mA or kV according to patient size, and/or use of iterative reconstruction technique. Electronically signed by Etienne Schultz 11/27/2018 3:50 PM
--- NOTE | 2018-11-27 15:59 | Diag Imaging Result Doc PS360 ---
EXAM: CT ABDOMEN/PELVIS W/O CONTRAST 11/27/2018 HISTORY: RAE TECHNIQUE: This exam was performed using automated exposure control, adjustment of mA or kV according to patient size, and/or use of iterative reconstruction technique. COMMENT: The current examination is compared to the previous study of 11/25/2018. There is worsening volume loss and opacification in the right middle lobe and both lower lobes as well as the inferior portion of the lingula. There is increasing pleural fluid bilaterally. There is increasing anasarca in the subcutaneous fat. There is some fullness in both renal collecting systems. This is not changed appreciably since the previous study. There is ascites which was not apparent at the time the previous study. There is an NG tube with its tip in the stomach. There has been cholecystectomy. The spleen and adrenal glands are stable in appearance. The pancreas is stable in appearance. The dilatation of the stomach and small bowel which were present previously have improved. The August catheter remains with its tip in the bladder. There is an apparent temperature probe or other device in the rectum. IMPRESSION: 1. Worsened pulmonary edema, anasarca, pleural effusions, and ascites. 2. Improved ileus. Electronically signed by Javan Jackson 11/27/2018 3:56 PM
[2018-11-27 16:04] LABS: URINE SOURCE CATH
[2018-11-27 16:10] LABS: BILIRUBIN URINE NEGATIVE (NEGATIVE); BLOOD URINE MODERATE (NEGATIVE); COLOR YELLOW; GLUCOSE URINE 150 mg/dL (NEGATIVE); KETONE URINE NEGATIVE (NEGATIVE); LEUKOCYTES URINE SMALL (NEGATIVE); NITRITE URINE NEGATIVE (NEGATIVE); PROTEIN URINE 300 mg/dL (NEGATIVE); SP GRAVITY URINE 1.006; TURBIDITY URINE HAZY (CLEAR); UROBILINOGEN URINE NORMAL (NORMAL)
[2018-11-27] MEDS ORDERED: CEREBYX 1,500 MG in NS 100 ML IV ONE (16:10)
[2018-11-27] MEDS: ZOSYN 2.25 GM in NS 50 ML IV SCH ×2 (16:19→21:55)
[2018-11-27 16:20] LABS: UR EPITHELIAL CELLS >10 /HPF (<10); URINE BACTERIA NEGATIVE /HPF; URINE RBC <10 /HPF (<10); URINE WBC <10 /HPF (<10)
[2018-11-27 16:44] LABS: URINE CASTS GRANULAR PRESENT; URINE CRYSTALS NONE SEEN; URINE YEAST NONE SEEN
[2018-11-27 16:45] LABS: URINE SMALL ROUND CELLS RENAL PRESENT
[2018-11-27 17:01] LABS: UR CREAT RANDOM 24.6 mg/dL (11-20); UR PROT RANDOM 537.2 mg/dL; UR SODIUM 112 mmoll; UR UREA NITROGEN RANDOM < 70 mg/dL
--- NOTE | 2018-11-27 19:31 | CARDIOLOGY PROGRESS NOTE ---
DATE: 11/27/2018 SUBJECTIVE: Ms. Rainey is not responsive to painful or physical stimuli. She is currently on pressors. OBJECTIVE: She had a T-max of 100.2 degrees this morning at 10:32. Heart rates have been in the 130s quite frequently. Her blood pressure is 97/54. Generally, she is an ill-appearing white female. She is on the ventilator. She is not responsive to physical or verbal stimuli. Cardiovascularly, she is in a tachycardic rhythm. Telemetry currently seems to suggest atrial fibrillation. She has warm and well-perfused extremities. Her chest exam has coarse diffuse breath sounds. No increased work of breathing. Abdomen is soft, nontender. DIAGNOSTIC DATA: She had an echocardiogram from 11/25 demonstrating normal ejection fraction; suggestion of a pleural effusion. LABORATORY DATA: Lab data shows a white count of 7.1, hematocrit of 26, platelet count 151,000. Her ABG shows a pH of 7.14, pCO2 of 38, pO2 of 75. Her lactate is 4.8. Her sodium is 138, potassium 4.1, BUN 49, creatinine is 3.8. ASSESSMENT: Ms. Rainey is a 73-year-old female who apparently suffered a seizure and then probable aspiration event, resulting in cardiac arrest. PLAN: She has a preserved ejection fraction. Her blood pressure is being supported by pressors at this point, which are likely driving her heart rate to an elevated rate. We will put a small dose of Lopressor at 2.5 q.4 p.r.n. heart rates greater than 120, to try to blunt this heart rate effect. Otherwise I do not have any acute cardiac recommendations. cc: MD Luis Reyes MD
--- NOTE | 2018-11-27 20:14 | PULMONOLOGY PROGRESS NOTE ---
DATE: 11/27/2018 SUBJECTIVE: The patient is unresponsive. She is having periodic twitching motions of her arms and face. It does not appear to be tonic clonic in nature. OBJECTIVE: Vital Signs: Maximum temperature in the last 24 hours 100.2 degrees, blood pressure 106/50, heart rate 130, respiratory rate 25, oxygen saturation 97%. HEENT: Pupils are equal but not reactive to light. Oropharynx appears clear. Neck: Supple. Chest: Reveals diffuse bilateral rhonchi. Cardiac exam: S1, S2. Abdomen: Soft, with no bowel sounds. Extremities: Cold to the touch. IMAGING STUDIES: Chest x-ray reveals diffuse bilateral infiltrates with significant worsening. LABORATORIES: White blood count 7.16, hemoglobin 9.3, platelet count 151,000. Sodium 141, potassium 4.9, chloride 105, bicarbonate 17, BUN 50, creatinine 3.9. Arterial blood gas: pH 7.14, pCO2 of 38, pO2 of 75, lactate 4.8. MICROBIOLOGY: There is no new culture data. IMPRESSION: A 73-year-old with history of seizure disorder, who has sustained a cardiopulmonary arrest. She is currently having what appears to be myoclonic twitching. This may represent seizures but likely is a component of significant anoxic brain injury. She has acute hypoxemic respiratory failure. She has ongoing hemodynamic/septic shock. She has acute renal failure and now has significant fluid overload and acute liver injury. RECOMMENDATIONS: 1. Discontinue IV fluids. 2. Continue vasopressors for shock. 3. Diuretic trial. 4. Nephrology consultation in the event that family wishes continued aggressive care. 5. Anticipate repeat CT scan and EEG today. 6. Current clinical prognosis appears to be very grim. Javan neurologic prognosis has been discussed with the family by the neurologist. TIME SPENT IN CRITICAL CARE MANAGEMENT: 30+ minutes. cc: MD Luis Tucker MD
--- NOTE | 2018-11-27 20:50 | NEPHROLOGY CONSULTATION ---
DATE: 11/27/2018 REASON FOR ADMISSION: Respiratory failure status post cardiopulmonary arrest, seizure, acute renal failure. CONSULTING PHYSICIAN: Dr. Spence. REASON FOR CONSULTATION: Acute renal failure, assist with management. HISTORY OF PRESENT ILLNESS: This is a 73-year-old female who has a past medical history of seizure disorder, who had multiple seizure activity at home, went into cardiac arrest. Patient received CPR at home until EMS arrived. She had ROSC, brought into the emergency room. She was severely acidotic at that time. She has underwent hypothermia protocol. Once the sedation was removed, she began having continued spontaneous jerking/seizure activity. She has been followed by neurology, been followed by pulmonology for her respiratory failure. Remains on the ventilator. Her creatinine at time of admission was 3.9. She went down to as low as 3.3, but has quickly returned back up to 3.9 with a creatinine. She has been essentially anuric, 15 mL over the last 24 hours of urine output. She is now about 9 L positive over the last 36 to 48 hours. We have been asked to see her and assist with her care. When I see the patient, she remains completely unresponsive. She continues to have almost continual seizure/jerking activity and is unresponsive otherwise. Patient remains mechanically ventilated. PAST MEDICAL HISTORY: Seizure disorder, diabetes, hypertension, neuropathy, hypercholesterolemia, apparent recent diarrheal illness, history of breast cancer. PAST SURGICAL HISTORY: She has had a cholecystectomy. ALLERGIES: No known drug allergies. CURRENT MEDICATIONS: Her current medications are listed as Tylenol, dopamine, Lovenox, epinephrine, Pepcid, Lasix, Solu-Cortef, Humulin, Keppra, Ativan, magnesium sulfate, metoprolol, vancomycin, nitroglycerin, norepinephrine, piperacillin/tazobactam, potassium chloride, propofol. FAMILY HISTORY: Noncontributory. SOCIAL HISTORY: No ETOH, tobacco or illicit drug use. REVIEW OF SYSTEMS: Unobtainable. PHYSICAL EXAMINATION: Vital Signs: Temperature 100.2 degrees, pulse 129, respiratory rate 28, blood pressure 104/83. Intake 5.7 L, output 15 mL. Of note, again 9 L positive over the last 2 days. General: This is an elderly female, currently mechanically ventilated. She has almost continual spastic jerking movements to the head, neck, and shoulders. HEENT: Normocephalic, atraumatic. Orally intubated. Neck: Supple. Positive JVD. Cardiovascular: Tachycardic. Regular rate. Pulmonary: Decreased breath sounds. Mechanically ventilated. Abdomen: Round, soft. Positive bowel sounds, hypoactive. Genitourinary: August catheter. No urine. Extremity: There is 1+ edema. Integumentary: Skin is pale, warm and dry. Neurologic: As noted above. LABORATORY DATA: WBC of 7.1, hemoglobin 9.3, platelets 151,000. Sodium 138, potassium 4.1, CO2 of 13, BUN 49, creatinine 3.8. ASSESSMENT AND PLAN: 1. Acute kidney injury in the setting of cardiopulmonary arrest, hypotension. Patient with anuria. The patient is to go for a CT of the head sometime today. We have requested that CT of the abdomen and pelvis be completed at that time. I discussed with the nurses that if they are able to obtain enough urine to send it down for urine studies. I did discuss with the family that dependent on her head CT findings, it would likely determine the path for the plan of care this patient would require. If there is something that we can do, such as dialysis/SLED, for fluid volume management to assist with ventilatory status we will do so, but we do need to obtain her head CT results and make sure she does not have some type of catastrophic anoxic injury that would warrant such efforts futile. 2. Electrolytes, acid-base balance. She has some mild acidosis. Again, see number 1 for the plan. 3. Status post cardiopulmonary arrest. Patient continues to be followed by primary and pulmonology. 4. Seizure disorder. Question of anoxic brain injury, followed by neurology. 5. Anemia. Patient has received packed red blood cells. Continue to monitor. 6. Medication review. Her current Zyvox dose will be adjusted to a renal appropriate dose. No other changes needed at this time. Because of the patient's continued seizure activity, the benefits of the increased dose of Keppra outweigh her renal issues. Dictated by JOHANNA De Luna for Mark Dykes MD cc: MD Luis Hernandez MD [facility]
--- NOTE | 2018-11-27 20:57 | EEG REPORT ---
DATE: 11/27/2018 COMMENT: This is a digitally recorded EEG done portably in the ICU on a 73-year-old patient with previous seizures, persistent coma following cardiopulmonary arrest, resuscitation, cooling and rewarming. She has clinically noted repetitive non-clonic jerking movement mostly involving neck and shoulders. FINDINGS: The record shows prominent burst suppression pattern. There are bursts lasting from 0.5 to 1 second composed of high-amplitude polymorphic delta, frequent associated sharp wave and spikes, mostly generalized, sometimes phase reversal in the posterior frontal right hemisphere. Periods of voltage suppression range from 1 second to 8 seconds. No electrographic seizure was recorded. The periods of high amplitude activity do correspond with her clinical jerking as noted on the video. IMPRESSION: Abnormal EEG because of generalized slowing and burst suppression with epileptiform discharges. CORRELATION: This is typical of postanoxic brain injury and carries very poor prognosis. The periods of high amplitude slowing may be epileptogenic. cc: MD Luis Amador III, MD MTDD
[2018-11-27 21:19] LABS: BASO# 0.01 X1000 (0.0-0.2); BASO% 0.1 % (0.0-0.8); EOS# 0.05 X1000 (0.0-0.7); EOS% 0.5 % (0.0-10.0); HEMATOCRIT 29.1 % (37.0-47.0); HEMOGLOBIN 10.5 g/dL (12.0-16.0); IMM GRAN% 6.3 % (0.0-0.5); LYMPH# 1.38 X1000 (1.2-3.4); LYMPH% 12.4 % (20.5-51.1); MCH 30.4 PG (27-31); MCHC 36.1 g/dL (33-37); MCV 84.3 FL (81-99); MONO# 0.64 X1000 (0.11-0.59); MONO% 5.8 % (1.7-9.3); MPV 12.1 FL (7.4-10.4); NEUT# 8.31 X1000 (1.4-6.5); NEUT% 74.9 % (42.2-75.2); PLT 165 X1000 (130-400); RBC 3.45 XMIL (4.2-5.4); RDW 13.2 % (11.5-14.5); WBC 11.09 X1000 (4.8-10.8)
[2018-11-27 21:24] LABS: INR 1.34; PROTIME 17.7 Seconds (11.0-16.0)
[2018-11-27 21:56] LABS: AMYLASE 62 U/L (20-200); LIPASE 25 U/L (13-60)
[2018-11-27 22:10] LABS: ALB/GLOB RATIO 0.9; ALBUMIN 2.4 g/dL (3.5-5.0); CREATININE 4.6 mg/dL (0.5-0.9); MAGNESIUM 1.9 mg/dL (1.5-2.7); PHOSPHORUS 5.6 mg/dL (2.7-4.5); POTASSIUM 6.5 mmol/L (3.5-5.1); TOTAL BILIRUBIN 1.06 mg/dL (0.20-1.00); TOTAL PROTEIN 5.1 g/dL (6.3-8.3)
[2018-11-27 22:11] LABS: CALCIUM 6.7 mg/dL (8.8-10.2)
[2018-11-27] MEDS ORDERED: HUMALOG SUBQ ONE (22:48)
[2018-11-27] MEDS ORDERED: CALCIUM GLUCONATE 1 GM in NS 50 ML IV ONE (22:48)
[2018-11-28 01:04] LABS: BASO# 0.02 X1000 (0.0-0.2); BASO% 0.2 % (0.0-0.8); HEMATOCRIT 29.2 % (37.0-47.0); HEMOGLOBIN 10.4 g/dL (12.0-16.0); IMM GRAN# 1.03 X1000 (0.0-0.04); IMM GRAN% 8.7 % (0.0-0.5); LYMPH# 1.05 X1000 (1.2-3.4); LYMPH% 8.9 % (20.5-51.1); MCH 30.4 PG (27-31); MCHC 35.6 g/dL (33-37); MCV 85.4 FL (81-99); MONO# 0.64 X1000 (0.11-0.59); MONO% 5.4 % (1.7-9.3); MPV 12.2 FL (7.4-10.4); NEUT# 9.09 X1000 (1.4-6.5); NEUT% 76.8 % (42.2-75.2); PLT 175 X1000 (130-400); RBC 3.42 XMIL (4.2-5.4); RDW 13.6 % (11.5-14.5); WBC 11.83 X1000 (4.8-10.8)
[2018-11-28 01:30] LABS: ALB/GLOB RATIO 0.9; ALBUMIN 2.3 g/dL (3.5-5.0); CREATININE 4.5 mg/dL (0.5-0.9); TOTAL BILIRUBIN 0.96 mg/dL (0.20-1.00)
[2018-11-28 01:31] LABS: CALCIUM 6.6 mg/dL (8.8-10.2); POTASSIUM 6.3 mmol/L (3.5-5.1)
[2018-11-28] MEDS: LASIX IV SCH (01:45)
[2018-11-28] MEDS: LEVOPHED 8 MG in D5 1/2 NS 250 ML IV SCH ×2 (01:45→06:23)
[2018-11-28] MEDS ORDERED: CALCIUM GLUCONATE 1 GM in NS 50 ML IV ONE (02:29)
[2018-11-28] MEDS ORDERED: HUMALOG IV ONE (02:31)
[2018-11-28] MEDS: ZOSYN 2.25 GM in NS 50 ML IV SCH (03:03)
[2018-11-28] MEDS: EPINEPHRINE 8 MG in D5W 250 ML IV SCH (03:04)
[2018-11-28] MEDS: D50W SYRINGE IV PRN (03:06)
[2018-11-28] MEDS ORDERED: CEREBYX 200 MG in NS 50 ML IV SCH (04:00)
[2018-11-28] MEDS: NS 500 ML IV SCH (04:03)
[2018-11-28] MEDS: SOLU-CORTEF IV SCH (04:04)
[2018-11-28] MEDS: SODIUM CHLORIDE 0.9% INJ SCH (06:11)
[2018-11-28] MEDS: HUMULIN R SUBQ SCH (06:12)
[2018-11-28] MEDS: PEPCID IV SCH (06:12)
--- NOTE | 2018-11-28 07:19 | Diag Imaging Result Doc PS360 ---
EXAM: CHEST-PORTABLE 11/28/2018 HISTORY: intubated TECHNIQUE: AP portable at 0524 COMMENT: There are diffuse alveolar opacities present bilaterally. There is an endotracheal tube with its tip at the thoracic inlet and an NG tube with tip below the diaphragm. Compared to 11/27/2018 there has been no appreciable change. The alveolar opacities are worse than on 11/26/2018. IMPRESSION: Pulmonary edema and/or pneumonia. Electronically signed by Javan Jackson 11/28/2018 7:17 AM
[2018-11-28 09:00] VITALS: BP 93/56
--- NOTE | 2018-11-28 19:32 | PROGRESS NOTE ---
DATE: 11/28/2018 VITAL SIGNS: Temperature 98 degrees, heart rate 118, respirations 26, blood pressure 85/60, O2 saturation on ventilator 97%. LABORATORY: Hemoglobin 10.4, hematocrit 29.2, white blood count 01200. Sodium 139, potassium 6.3, BUN 58, creatinine 4.5, calcium 6.6, a couple of amps of calcium gluconate were given overnight and also D50 and insulin. Discussion was made with the family concerning course of treatment at this time. Family desires to discontinue ventilator and stop IV epinephrine. Exam reveals pupils to be mid range and unreactive. There is no movement of extremities. She is having no seizure activity at the current time. PLAN: She will be placed on 100% non-rebreather mask and given only comfort measures with Ativan p.r.n. Prognosis is terminal. She is DNR level 1. cc: Luis Abdul MD
[2018-11-28] MEDS ORDERED: VANCOMYCIN 1 GM in NS 250 ML IV SCH (22:00)
--- NOTE | 2018-11-29 08:58 | DISCHARGE SUMMARY ---
ADMISSION DATE: 11/25/2018 DISCHARGE DATE: 11/28/2018 FINAL DIAGNOSES: 1. Cardiorespiratory arrest. 2. Hypoxic brain injury. 3. Seizure disorder. 4. Diabetes. TIME OF : 8:18 a.m. today, 11/28/2018. HOSPITAL COURSE: This is the first recent [facility] admission for this 73-year-old white female who had a cardiorespiratory arrest at home and was brought by ambulance to [facility]. She was placed on a ventilator and cooling protocol. She was transferred to [facility] for availability of Pulmonology, Neurology, and Cardiology. Prognosis remained poor. She was maintained on ventilator with initially acidotic pH. She required epinephrine drip to maintain blood pressure. She was placed on propofol and fentanyl for paralysis. She had moderate seizure activity the 1st couple of days in the hospital and was given IV heparin, increasing doses. Echocardiogram was done yesterday revealing fairly good function. 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 EEG showed limited activity. Prognosis was felt to be terminal. She was made a Do Not Resuscitate level 1. Laboratory this morning revealed hemoglobin 10.4, hematocrit 29.2, white blood count 11,800. Potassium 6.3, BUN 58, creatinine 4.5, glucose 273. A discussion was made with the family and they were agreeable to discontinue with ventilator and epinephrine drip. Pupils were mid range and unresponsive. After discontinuation of ventilator and epinephrine drip, she had some runs of ventricular tachycardia. She remained calm. Respirations and heart rate ceased at 8:18 a.m. The patient was pronounced at 8:26 a.m. Family did not wish organ donation. cc: Luis Abdul MD
== END 2018-11-28 08:32 | disposition expired | DRG 871 ==
LOC: P.ED 13:02 → ICU 17:14
PROVIDERS: ADMIT Family Medicine; ATTEND Family Medicine
CPT/HCPCS: 36430; 51702; 70450; 71010; 71045; 71250; 74000; 74018; 74176; 80048; 80053; 81001; 82150; 82533; 82550; 82553; 82570; 82805; 82948; 83605; 83690; 83735; 83880; 84100; 84156; 84300; 84484; 84540; 85014; 85025; 85610; 86850; 86900; 86901; 86920; 87040; 87070; 87088; 87205; 89220; 93005; 93010; 93306; 94003; 94761; 95816; 96365; 96366; 96368; 96375; 96376; 99285; 99291; A9270; J0171; J0461; J0610; J1265; J1650; J1720; J1815; J1940; J1953; J2060; J2250; J2405; J2543; J2930; J3010; J3370; J3475; J3480; J7030; J7040; J7050; J7060; P9016; P9047; Q2009; S0028; XXXXX